=== PATIENT | male | born 1965 | race Caucasian/White ===

== ENCOUNTER 2025-02-25 14:45 | Inpatient (IN) | payer BC, SELFPAY ==
[2025-02-25] VITALS (19 sets, daily range): BP systolic 83–138; BP diastolic 60–102; BMI 34.5; BMI 35.5
--- NOTE | 2025-02-25 11:17 | ED.GENMED ---
History of Present Illness
<Carol Ann Stoner PA-C - Last Filed: 02/25/25 22:13>
General
Chief Complaint: Abdominal Pain
Source: patient
Exam Limitations: none
Time Seen by Provider: 02/25/25 10:52
Nursing documentation reviewed up to this point in time: agreed with
History of Present Illness
History of Present Illness:
Patient is a 59-year-old healthy male who presents to the emergency department for evaluation of abdominal pain and distention. He states his symptoms started Thursday afternoon with somewhat vague abdominal discomfort as he was leaving for a
business trip to [place]. Over the following 2 days he states pain seem to migrate and localized in the right lower quadrant. He states he feels extremely bloated and his abdomen is distended. He has had very little appetite, nausea, and did
have 1 episode of diarrhea this morning. Patient states that he returned home from his business trip last night and his felt that he looked 'pierson'. He also had a temp at home last night of 102F.
Patient denies any chest pain although does endorse mild shortness of breath with exertion send symptoms started. He denies any dysuria although states his urinary frequency has been much less.
He has no prior history of abdominal surgeries.
Review of Systems
<Carol Ann Stoner PA-C - Last Filed: 02/25/25 22:13>
Review of Systems
Allergies reviewed?: Yes
All Other Systems: ROS reviewed and negative except as documented in HPI and ROS
Phy Exam
<Carol Ann Stoner PA-C - Last Filed: 02/25/25 22:13>
Physical Exam
Physical Exam:
Vitals: Tachycardic, mildly tachypneic, and febrile to 102.2F
General: Patient is uncomfortable appearing
Skin: Warm and dry, no rashes or lesions
Head: Normocephalic, atraumatic
Eyes: Sclera nonicteric.
Throat: Protecting airway
Neck: Normal ROM, no cervical spine tenderness, no meningismus
Cardiac: Tachycardic, regular rhythm, no murmurs.
Pulm: Mildly tachypneic. Shallow breaths. No wheezing or rhonchi appreciated bilaterally
Abdomen: Distended. Focal tenderness in right lower quadrant McBurney's point with voluntary guarding. No rebound tenderness
Extremities: No evidence of cyanosis or edema
Neuro: AAOx3. Grossly intact.
Psychiatric: Normal affect.
Sepsis
<Carol Ann Stoner PA-C - Last Filed: 02/25/25 22:13>
Sepsis Screening
Sepsis Assessment: Severe Sepsis
Sepsis Screening: ARF-Creatinine >2.0 and Worsening O2 Saturation
Sepsis Screen
Sepsis Screen: Severe Sepsis
Date: 02/25/25
Time: 22:07
<Anita Goncalves MD - Last Filed: 02/25/25 14:39>
Sepsis Screen
Sepsis Screen: Severe Sepsis
Date: 02/25/25
Time: 14:31
Course
<Carol Ann Stoner PA-C - Last Filed: 02/25/25 22:13>
Orders/Labs/Results
Orders:
Orders
02/25/25 Lunch
NPO
Allow oral meds: Yes
Allow clear liquids: Sips of Clears
NPO with Ice Chips: Yes
02/25/25 11:02
Electrocardiogram (*1) Urgent
Reason for Study: Shortness of Breath
EKG- Treatment ONCE
Urinalysis Reflex To Culture Urgent
0.9% Sodium Chloride 1000 ml [Nss] 1,000 ml IV BOLUS
02/25/25 11:03
CT Abd/pelvis W Iv Cont Urgent
Comment:
Reason For Exam: RLQ pain, bloating
Cardiac Monitoring- Treatment ONCE
HYDROmorphone [Dilaudid] 0.5 mg IV NOW STA
Ondansetron Injectable [Zofran] 4 mg IV NOW STA
02/25/25 11:25
Complete Blood Count/With Diff Urgent
Comprehensive Metabolic Panel Urgent
Direct Bilirubin Urgent
Lactic Acid Q4H
Comment: CANCEL 2nd LACTIC ACID IF 1st LACTIC ACID IS LESS THAN 2
Lipase Urgent
Magnesium Urgent
Comment: ADD ON
Blood Culture Q30M
SHENA Source: Blood/Venous
Specimen Description:
02/25/25 11:26
Blood Culture Q30M
SHENA Source: Blood/Venous
Specimen Description:
02/25/25 11:31
CR Abdomen - 1 View Urgent
Comment:
Reason For Exam: SOB, abdominal pain
Chest Single View Frontal CR [CR Chest Single View] Urgent
Comment:
Reason For Exam: SOB, abdominal pain
02/25/25 11:50
Acetaminophen 1000MG/100Ml [Ofirmev] 1,000 mg in 100 ml IV ONCE
Acetaminophen IV Indication:: ED Narcotic Naive Pt-ONCE
02/25/25 11:51
0.9% Sodium Chloride 1000 ml [Nss] 1,000 ml IV BOLUS
02/25/25 12:00
Piperacillin/Tazo 3.375 Gram [Zosyn] 3.375 gram in 50 ml IV NOW
02/25/25 12:48
0.9% Sodium Chloride 250 ml [Nss] 250 ml IV BOLUS
02/25/25 13:39
Admit/Transfer Patient As Directed
Co-Sign Provider:
Level of Care: Inpatient admission
Assign to:: Medical/Surgical
Physician / Group: General surgery/Leo
Diagnosis: Acute appendicitis
Reason for Hospitalization: ileus, acute appendicitis, ARF
Expected length of stay greater than two midnights?: Yes
ELOS- Estimated Length of Stay in days: 3
I certify the patient meets the requirements for IP care: Yes
PRN Pain Medication Management As Directed
May give lesser potent ordered pain med per pt: Yes
preference::
Protocol:: Medication orders for pain may be administered in a
manner that supports deferring to patient preference
when the pt is:
- Requesting an ordered lesser potent pain medication.
Least to most potent pain medications are defined
as: acetaminophen < NSAID < tramadol < opioids
(morphine, oxycodone, hydromorphone).
- Requesting a lesser dose of the same medication IF
ORDERED.
- Requesting a less intrusive route of administration
if both routes are prescribed by the provider (PO <
IV).
02/25/25 13:40
Code Status As Directed
Resuscitation Status: Full Code
02/25/25 13:51
Consult Hospitalist [HOSPITALIST CONSULT] Routine
Consulting Provider: Romina Toledo
Was physician already notified: Yes
Reason for consult: Medical management
02/25/25 13:58
UA [Urinalysis] Routine
Urine Creatinine Routine
Urine Sodium Routine
02/25/25 14:01
Osmolality, Random Urine Routine
02/25/25 14:02
Dexamethasone Sod Phosphate [Decadron] 20 mg .ROUTE .STK-MED ONE
Lidocaine HCl/Pf [Xylocaine-Mpf 1% Vial] 50 mg .ROUTE .STK-MED ONE
Ondansetron Injectable [Zofran] 4 mg .ROUTE .STK-MED ONE
Phenylephrine HCl/0.9% NaCl [Josh-Synephrine] 1,000 mcg .ROUTE .STK-MED ONE
Propofol [Diprivan] 20 ml .ROUTE .STK-MED
Rocuronium [place] [Rocuronium] 50 mg .ROUTE .STK-MED ONE
Succinylcholine Chloride [Succinylcholine] 200 mg .ROUTE .STK-MED ONE
Sugammadex Sodium [Bridion] 200 mg .ROUTE .STK-MED ONE
02/25/25 14:05
Fentanyl Citrate/Pf [Sublimaze] 100 mcg .ROUTE .STK-MED ONE
Midazolam HCl [Versed] 2 mg .ROUTE .STK-MED ONE
02/25/25 14:07
Amiodarone [Cordarone] 300 mg .ROUTE .STK-MED ONE
02/25/25 14:09
Bupivacaine 0.5%Pf/Epinephrin [Sensorcain-Mpf Epi 0.5%-0.0005] 30 ml .ROUTE .STK-MED ONE
Carboxymethylcellulose [Refresh Celluvisc Gel] 6 drops .ROUTE .STK-MED ONE
02/25/25 14:15
Add On- LAB Urgent
Tests Added?: magnesium
02/25/25 14:19
Transfer Patient As Directed
Transfer to: IMU- Intermediate Care
02/25/25 14:20
Potassium Chloride [KCl] 40 meq 0.9% Sodium Chloride 250 ml [Nss] 250 ml IV NOW
02/25/25 14:24
Amiodarone [Cordarone] 450 mg DEXTROSE 5% PVC-free BAG [D5W PVC-free BAG] 250 ml IV NOW
Initial Dose in mg/min:: 1
Duration of initial dose (hours):: 6
Subsequent dose in mg/min:: 0.5
Duration of subsequent dose (hours):: 18
Maximum dose in mg/min:: 1
Hold and notify provider if:: Heart rate < 60 BPM or SBP < 90 mmHg or MAP < 60 mmHg
02/25/25 14:26
NORepinephrine 4 MG/250 ML [Levophed] 4 mg in 250 ml .ROUTE .STK-MED
02/25/25 14:29
0.9% Sodium Chloride 1000 ml [Nss] 1,000 ml IV BOLUS
02/25/25 14:45
Sterile Water For Inj [Sterile Water For Injection 1000 ml] 1,000 ml Sodium Bicarbonate 150 meq IV 100 mls/hr
Saucedo Catheter [Catheter- Indwelling] As Directed
Reason for insertion: Acute Kidney Injury
Discontinue Date/Time: 02/28/25 0600
Intake/ Output As Directed
Frequency: Per unit guidelines
Comment: strict intake and output monitoring
Weight As Directed
Frequency: Daily
02/25/25 16:42
Acetaminophen [Tylenol] 650 mg PO Q4HPRN PRN
HYDROmorphone [Dilaudid] 0.5 mg IV Q2HPRN PRN
HYDROmorphone [Dilaudid] 1 mg IV Q2HPRN PRN
Ondansetron Injectable [Zofran] 4 mg IV Q6HPRN PRN
Oxycodone [Roxicodone] 5 mg PO Q4HPRN PRN
02/25/25 16:42
Echo 2D MMode Color/Doppler Routine
Reason for Study: SVT, NSVT
Activity As Directed
Activity Level: Out of Bed-Early Mobility
Anti-embolism (SANGEETA) Hose As Directed
Type: Thigh high
Intake/ Output As Directed
Frequency: Per unit guidelines
Pneumatic Compression Sleeves As Directed
Type: Knee high
Pneumatic Compression Sleeves As Directed
Type: Thigh high
Vital Signs As Directed
Frequency: Per unit guidelines
O2 Therapy [RESP] Routine
Titrate/Wean O2 to maintain O2 sat greater than (%): 92
Rx Incentive Spirometry [RESP] Routine
Frequency: q1h while awake
# of times per hour: 10
DX Deep Vein Thrombosis Video Routine
DX Deep Vein Thrombosis Video Routine
DX Deep Vein Thrombosis Video Routine
02/25/25 18:00
Piperacillin/Tazo 2.25 Gram [Zosyn] 2.25 grams in 50 ml IV Q6H
02/26/25 06:00
Complete Blood Count/No Diff IN AM
Comprehensive Metabolic Panel IN AM
02/26/25 20:00
Heparin 5,000 units SC Q12
Abnormal Lab Results
02/25/25
11:25
WBC 16.0 H 10^3/uL
(4.8-10.8)
Abs Immat Gran (auto) 0.2 H 10^3/uL
(0-0.05)
Absolute Neuts (auto) 14.0 H 10^3/uL
(1.4-6.5)
Absolute Lymphs (auto) 0.6 L 10^3/uL
(1.2-3.4)
Absolute Monos (auto) 1.1 H 10^3/uL
(0.1-0.6)
Immature Gran % 0.9 H %
(0-0.5)
Neutrophils % 87.7 H %
(42.2-75.2)
Lymphocytes % 3.9 L %
(20.5-51.1)
Sodium 129 L mmol/L
(135-145)
Chloride 94 L mmol/L
(98-107)
Carbon Dioxide 20 L mmol/L
(22-30)
BUN 55 H mg/dl
(9-20)
Creatinine 3.4 H mg/dL
(0.7-1.3)
Glucose 124 H mg/dl
(70-99)
Total Bilirubin 1.9 H mg/dl
(0.2-1.3)
Direct Bilirubin 0.5 H mg/dl
(0.0-0.4)
02/25/25 11:25
02/25/25 11:25
Vital Signs
Initial and Last Documented VS:
Initial Vital Signs
Temp Pulse Resp BP Pulse Ox
98.8 F 114 16 103/68 98
02/25/25 10:26 02/25/25 10:26 02/25/25 10:26 02/25/25 10:26 02/25/25 10:26
Last Documented Vital Signs
Temp Pulse Resp BP Pulse Ox
97.8 F 83 25 124/81 98
02/25/25 18:37 02/25/25 18:30 02/25/25 18:30 02/25/25 18:02 02/25/25 20:21
<Anita Goncalves MD - Last Filed: 02/25/25 14:39>
Orders/Labs/Results
Orders:
Orders
02/25/25 Lunch
NPO
Allow oral meds: Yes
Allow clear liquids: Sips of Clears
NPO with Ice Chips: Yes
02/25/25 11:02
Electrocardiogram (*1) Urgent
Reason for Study: Shortness of Breath
EKG- Treatment ONCE
Urinalysis Reflex To Culture Urgent
0.9% Sodium Chloride 1000 ml [Nss] 1,000 ml IV BOLUS
02/25/25 11:03
CT Abd/pelvis W Iv Cont Urgent
Comment:
Reason For Exam: RLQ pain, bloating
Cardiac Monitoring- Treatment ONCE
HYDROmorphone [Dilaudid] 0.5 mg IV NOW STA
Ondansetron Injectable [Zofran] 4 mg IV NOW STA
02/25/25 11:25
Complete Blood Count/With Diff Urgent
Comprehensive Metabolic Panel Urgent
Direct Bilirubin Urgent
Lactic Acid Q4H
Comment: CANCEL 2nd LACTIC ACID IF 1st LACTIC ACID IS LESS THAN 2
Lipase Urgent
Magnesium Urgent
Comment: ADD ON
Blood Culture Q30M
SHENA Source: Blood/Venous
Specimen Description:
02/25/25 11:26
Blood Culture Q30M
SHENA Source: Blood/Venous
Specimen Description:
02/25/25 11:31
CR Abdomen - 1 View Urgent
Comment:
Reason For Exam: SOB, abdominal pain
Chest Single View Frontal CR [CR Chest Single View] Urgent
Comment:
Reason For Exam: SOB, abdominal pain
02/25/25 11:50
Acetaminophen 1000MG/100Ml [Ofirmev] 1,000 mg in 100 ml IV ONCE
Acetaminophen IV Indication:: ED Narcotic Naive Pt-ONCE
02/25/25 11:51
0.9% Sodium Chloride 1000 ml [Nss] 1,000 ml IV BOLUS
02/25/25 12:00
Piperacillin/Tazo 3.375 Gram [Zosyn] 3.375 gram in 50 ml IV NOW
02/25/25 12:48
0.9% Sodium Chloride 250 ml [Nss] 250 ml IV BOLUS
02/25/25 13:39
Admit/Transfer Patient As Directed
Co-Sign Provider:
Level of Care: Inpatient admission
Assign to:: Medical/Surgical
Physician / Group: General surgery/Leo
Diagnosis: Acute appendicitis
Reason for Hospitalization: ileus, acute appendicitis, ARF
Expected length of stay greater than two midnights?: Yes
ELOS- Estimated Length of Stay in days: 3
I certify the patient meets the requirements for IP care: Yes
PRN Pain Medication Management As Directed
May give lesser potent ordered pain med per pt: Yes
preference::
Protocol:: Medication orders for pain may be administered in a
manner that supports deferring to patient preference
when the pt is:
- Requesting an ordered lesser potent pain medication.
Least to most potent pain medications are defined
as: acetaminophen < NSAID < tramadol < opioids
(morphine, oxycodone, hydromorphone).
- Requesting a lesser dose of the same medication IF
ORDERED.
- Requesting a less intrusive route of administration
if both routes are prescribed by the provider (PO <
IV).
02/25/25 13:40
Code Status As Directed
Resuscitation Status: Full Code
02/25/25 13:51
Consult Hospitalist [HOSPITALIST CONSULT] Routine
Consulting Provider: Romina Toledo
Was physician already notified: Yes
Reason for consult: Medical management
02/25/25 13:58
UA [Urinalysis] Routine
Urine Creatinine Routine
Urine Sodium Routine
02/25/25 14:01
Osmolality, Random Urine Routine
02/25/25 14:02
Dexamethasone Sod Phosphate [Decadron] 20 mg .ROUTE .STK-MED ONE
Lidocaine HCl/Pf [Xylocaine-Mpf 1% Vial] 50 mg .ROUTE .STK-MED ONE
Ondansetron Injectable [Zofran] 4 mg .ROUTE .STK-MED ONE
Phenylephrine HCl/0.9% NaCl [Josh-Synephrine] 1,000 mcg .ROUTE .STK-MED ONE
Propofol [Diprivan] 20 ml .ROUTE .STK-MED
Rocuronium [place] [Rocuronium] 50 mg .ROUTE .STK-MED ONE
Succinylcholine Chloride [Succinylcholine] 200 mg .ROUTE .STK-MED ONE
Sugammadex Sodium [Bridion] 200 mg .ROUTE .STK-MED ONE
02/25/25 14:05
Fentanyl Citrate/Pf [Sublimaze] 100 mcg .ROUTE .STK-MED ONE
Midazolam HCl [Versed] 2 mg .ROUTE .STK-MED ONE
02/25/25 14:07
Amiodarone [Cordarone] 300 mg .ROUTE .STK-MED ONE
02/25/25 14:09
Bupivacaine 0.5%Pf/Epinephrin [Sensorcain-Mpf Epi 0.5%-0.0005] 30 ml .ROUTE .STK-MED ONE
Carboxymethylcellulose [Refresh Celluvisc Gel] 6 drops .ROUTE .STK-MED ONE
02/25/25 14:15
Add On- LAB Urgent
Tests Added?: magnesium
02/25/25 14:19
Transfer Patient As Directed
Transfer to: IMU- Intermediate Care
02/25/25 14:20
Potassium Chloride [KCl] 40 meq 0.9% Sodium Chloride 250 ml [Nss] 250 ml IV NOW
02/25/25 14:24
Amiodarone [Cordarone] 450 mg DEXTROSE 5% PVC-free BAG [D5W PVC-free BAG] 250 ml IV NOW
Initial Dose in mg/min:: 1
Duration of initial dose (hours):: 6
Subsequent dose in mg/min:: 0.5
Duration of subsequent dose (hours):: 18
Maximum dose in mg/min:: 1
Hold and notify provider if:: Heart rate < 60 BPM or SBP < 90 mmHg or MAP < 60 mmHg
02/25/25 14:26
NORepinephrine 4 MG/250 ML [Levophed] 4 mg in 250 ml .ROUTE .STK-MED
02/25/25 14:29
0.9% Sodium Chloride 1000 ml [Nss] 1,000 ml IV BOLUS
02/25/25 14:45
Sterile Water For Inj [Sterile Water For Injection 1000 ml] 1,000 ml Sodium Bicarbonate 150 meq IV 100 mls/hr
Saucedo Catheter [Catheter- Indwelling] As Directed
Reason for insertion: Acute Kidney Injury
Discontinue Date/Time: 02/28/25 0600
Intake/ Output As Directed
Frequency: Per unit guidelines
Comment: strict intake and output monitoring
Weight As Directed
Frequency: Daily
02/25/25 16:42
Acetaminophen [Tylenol] 650 mg PO Q4HPRN PRN
HYDROmorphone [Dilaudid] 0.5 mg IV Q2HPRN PRN
HYDROmorphone [Dilaudid] 1 mg IV Q2HPRN PRN
Ondansetron Injectable [Zofran] 4 mg IV Q6HPRN PRN
Oxycodone [Roxicodone] 5 mg PO Q4HPRN PRN
02/25/25 16:42
Echo 2D MMode Color/Doppler Routine
Reason for Study: SVT, NSVT
Activity As Directed
Activity Level: Out of Bed-Early Mobility
Anti-embolism (SANGEETA) Hose As Directed
Type: Thigh high
Intake/ Output As Directed
Frequency: Per unit guidelines
Pneumatic Compression Sleeves As Directed
Type: Knee high
Pneumatic Compression Sleeves As Directed
Type: Thigh high
Vital Signs As Directed
Frequency: Per unit guidelines
O2 Therapy [RESP] Routine
Titrate/Wean O2 to maintain O2 sat greater than (%): 92
Rx Incentive Spirometry [RESP] Routine
Frequency: q1h while awake
# of times per hour: 10
DX Deep Vein Thrombosis Video Routine
DX Deep Vein Thrombosis Video Routine
DX Deep Vein Thrombosis Video Routine
02/25/25 18:00
Piperacillin/Tazo 2.25 Gram [Zosyn] 2.25 grams in 50 ml IV Q6H
02/26/25 06:00
Complete Blood Count/No Diff IN AM
Comprehensive Metabolic Panel IN AM
02/26/25 20:00
Heparin 5,000 units SC Q12
Abnormal Lab Results
02/25/25
11:25
WBC 16.0 H 10^3/uL
(4.8-10.8)
Abs Immat Gran (auto) 0.2 H 10^3/uL
(0-0.05)
Absolute Neuts (auto) 14.0 H 10^3/uL
(1.4-6.5)
Absolute Lymphs (auto) 0.6 L 10^3/uL
(1.2-3.4)
Absolute Monos (auto) 1.1 H 10^3/uL
(0.1-0.6)
Immature Gran % 0.9 H %
(0-0.5)
Neutrophils % 87.7 H %
(42.2-75.2)
Lymphocytes % 3.9 L %
(20.5-51.1)
Sodium 129 L mmol/L
(135-145)
Chloride 94 L mmol/L
(98-107)
Carbon Dioxide 20 L mmol/L
(22-30)
BUN 55 H mg/dl
(9-20)
Creatinine 3.4 H mg/dL
(0.7-1.3)
Glucose 124 H mg/dl
(70-99)
Total Bilirubin 1.9 H mg/dl
(0.2-1.3)
Direct Bilirubin 0.5 H mg/dl
(0.0-0.4)
02/25/25 11:25
02/25/25 11:25
Vital Signs
Initial and Last Documented VS:
Initial Vital Signs
Temp Pulse Resp BP Pulse Ox
98.8 F 114 16 103/68 98
02/25/25 10:26 02/25/25 10:26 02/25/25 10:26 02/25/25 10:26 02/25/25 10:26
Last Documented Vital Signs
Temp Pulse Resp BP Pulse Ox
97.8 F 83 25 124/81 98
02/25/25 18:37 02/25/25 18:30 02/25/25 18:30 02/25/25 18:02 02/25/25 20:21
<Carol Ann Stoner PA-C - Last Filed: 02/25/25 22:13>
MDM/Problems Addressed
Differential Diagnosis Includes:
Not limited to: acute appendicitis, acute cholecystitis, bowel obstruction, incarcerated hernia, bowel perforation, intra-abdominal abscess, etc
MDM/Problems Addressed:
54 year-old male with severe sepsis secondary to acute appendicitis. Presenting with three days of progressively worsening abdominal pain, nausea, and fever at home.
Patient arrives tachycardic, mildly tachypneic. Afebrile on arrival. Physical exam as above.
Labs significant for leukocytosis of 16,000 with left shift. Chemistry reveals hyponatremia as well as acute renal failure with elevated creatine to 3.4. Lactic acid is normal.
With concern for sepsis � patient was given 30ml/kg fluid bolus as well as IV Zosyn with suspected G.I. source of infection.
No evidence of free air on X-ray imaging.
CT scan shows severe acute appendicitis with possible small bowel ileum. No evidence of associated perforation or abscess.
Patient meets severe sepsis criteria with persistent tachycardia, now febrile, with acute renal failure, and evidence of appendicitis.
Case was discussed with general surgery, Dr. Bailey who evaluates patient at bedside. He will plan to take patient directly to OR for appendectomy. Patient accepted to general surgery service.
Chronic conditions affecting care:
N/A
Acute Exacerbation and/or Progression of Chronic Illness:
N/A
<Carol Ann Stoner PA-C - Last Filed: 02/25/25 22:13>
*Radiology
Radiology exam reviewed: radiology read reviewed
*Pulse Oximetry
SaO2: 88
Oxygen Mode of Delivery: Room air
Patient hypoxic: yes
*EKG
Interpreted by ED Provider?: Yes
EKG Intrepretation Date: 02/25/25
Interpretation: abnormal
Comparison EKG: no comparison EKG present
Heart Rate: 118
Rate: tachycardiac
Rhythm: sinus
[place]: normal axis
Interval: normal QT interval
QRS Pattern: normal QRS
Ischemia: no ischemia
*Medical Transcription Radiology Interpretation
Rate: tachycardiac
Interpretation: abnormal
Heart Rate: 112
Rhythm: sinus
*Critical Care Note
Total Time (30-74mins, 75-104mins- exclusive of procedures): 45
comment:
A total of 45 minutes of critical care time was provided for this patient. This includes management of unstable vital signs, evaluation of the patient at bedside, reviewing the patient's pertinent medical records, ordering and reviewing studies,
arranging urgent treatment with development of a management plan, evaluating patient's response to treatment, frequent reassessment, and discussion with consultants. This time was separate from time utilized to perform the aforementioned documented
procedures.
<Carol Ann Stoner PA-C - Last Filed: 02/25/25 22:13>
Patient Management
Discussion with other providers: Hospitalist and [employer]person [employer] (Case discussed w/ general surgery)
<Carol Ann Stoner PA-C - Last Filed: 02/25/25 22:13>
Update Note
Update Note:
Update: Prior to transportation to OR � RN in ED did alert myself and attending that patient became tachycardic in 200s. We re-evaluated patient bedside who appears to be in an SVT however asymptomatic. He then briefly converted into a ventricular
tachycardia for about 15 beats prior to returning into an SVT.
He was given dose of amiodarone and placed on an amiodarone drip. SVT did convert back to a sinus tachycardia after vagal maneuvers.
At this point � general surgery, hospital team, as well as cardiology were made aware for further management.
Patient was eventually transported to the OR from ED under general surgery service.
ED Attending Note
<Carol Ann Stoner PA-C - Last Filed: 02/25/25 22:13>
-
Portions of this chart may have been created with voice recognition software.� Occasional wrong word or��sound alike� substitutions may have occurred due to the inherent limitations of voice recognition software.
<Anita Goncalves MD - Last Filed: 02/25/25 14:39>
ED Attending Note
Patient seen and examined by attending physician: Yes
I performed the substantive portion of visit, reviewed & personally made and approve the management plan that is documented in note by myself or GERA.: Yes
ED Attending Note:
I have seen and evaluated the patient with a [id number] encounter. I have spoken to the [GERA] and involved in the medical history, the physical exam, medical decision making.
Evaluation and management service: agree unless noted differently below.
Results interpretation: agree unless noted differently below.
59-year-old man is otherwise healthy presenting to the emergency department abdominal pain. Abdominal pain started few days ago. Started off in the right lower quadrant. Since then has been having worsening abdominal bloating as well as nausea
vomiting and 1 episode of diarrhea last night. No prior abdominal surgeries. No recent illnesses. He was febrile to 102 last night. On my evaluation patient is sitting there resting comfortably. His abdomen is distended and diffusely tender.
There is mild guarding. He is tachycardic regular rate and rhythm. Lungs are clear to auscultation.
Concern for acute abdomen such as obstruction versus perforated viscus vs appendicitis. Will take patient over for stat upright x-rays while we await CT scan. He is febrile. Will check cultures and give empiric antibiotics as well as fluids.
Anticipate admission.
CT scan consistent with appendicitis.
Nursing called to bedside as patient as patient's heart rate in the 200s. I merely went to examine patient. He is asymptomatic with narrow complex tachycardia on the monitor. EKG confirmed SVT. Pads were placed on patient as patient did have 1
hypotensive reading.. While pads were being placed noticed wide-complex beat on the monitor. He then went back into SVT with a normal blood pressure. Revert maneuver was successful. Patient did go into normal sinus rhythm but shortly after went
into nonsustained V. tach. Blood pressures were stable. Patient remained asymptomatic. Patient back to normal rhythm on the monitor. Will repeat EKG. Will initiate amiodarone bolus and drip. Hospitalist surgery and cardiology notified.
Critical care statement: A total of 45 minutes of critical care time was provided for this patient. This includes management of unstable vital signs, evaluation of the patient at bedside, reviewing the patient's pertinent medical records, ordering
and reviewing studies, arranging urgent treatment with development of a management plan, evaluating patient's response to treatment, frequent reassessment, and discussion with consultants. This time was separate from time utilized to perform the
aforementioned documented procedures.
Discharge Plan
Departure
Patient Disposition: OR
Date of Disposition: 02/25/25
Time of Disposition: 13:23
Admit to doctor: Dr. Bailey
Presentation/result/management discussed w/ accepting MD/DO: General Surgery
Discharge Problem:
Severe sepsis, Acute appendicitis, Acute renal failure
Interventions
Interventions:
*Risk Screen - Suicide Last Done: 02/25/25 10:26
*General Assessment Last Done: 02/25/25 10:26
*Neglect/Abuse Screening Last Done: 02/25/25 10:26
*ED COVID-19 Vaccine History Last Done: 02/25/25 12:35
*ED Influenza Vaccine History Last Done: 02/25/25 12:35
[facility] Fall Risk Assessment Tool Last Done: 02/25/25 12:07
*Nursing Disposition Last Done: 02/25/25 14:50
[facility] Assessment Last Done: 02/25/25 11:40
Discharge Date and Time
Discharge Date/Time: 02/25/25 14:50
[2025-02-25] MEDS: DILAUDID 0.5 MG IV (11:28)
[2025-02-25] MEDS: ZOFRAN 4 MG IV (11:28)
[2025-02-25] MEDS: NSS 1000 IV ×3 (11:29→14:30)
[2025-02-25 11:39] LABS: Hematocrit 44.7 % (39.0-52.0); Hemoglobin 15.9 g/dL (13.0-18.0); Mean Corp Hgb Conc. 35.6 g/dL (33.0-37.0); Mean Corpuscular Volume 86.0 fL (80.0-94.0); Nucleated Red Blood Cells % 0 % (-); Platelet Count 174 10^3/uL (130-400); Red Cell Dist. Width 12.5 % (11.5-14.5)
[2025-02-25] MEDS: OFIRMEV 100 IV ×2 (12:00→21:08)
[2025-02-25 12:16] LABS: ALT (SGPT) 24 U/L (0-50); AST (SGOT) 22 U/L (17-59); Albumin 4.0 g/dl (3.5-5.0); Alkaline Phosphatase 82 U/L (38-126); Blood Urea Nitrogen 55 mg/dl (9-20); Calcium 8.8 mg/dl (8.4-10.2); Carbon Dioxide 20 mmol/L (22-30); Chloride 94 mmol/L (98-107); Estimated Creatinine Clearance 28 ml/min; Glucose 124 mg/dl (70-99); Lipase 30 U/L (23-300); Potassium 3.6 mmol/L (3.5-5.1); Sodium 129 mmol/L (135-145); Total Protein 7.0 g/dl (6.3-8.2); eGFR 20.09
[2025-02-25] MEDS: ZOSYN 50 IV ×3 (12:24→23:51)
--- NOTE | 2025-02-25 13:29 | HPS.HSE ---
Addendum entered and electronically signed by Alexandr Bailey MD 02/25/25 13:49:
I saw and examined the patient independently.
The Telesales Advisor's note was reviewed and I agree with the note, assessment and plan except where noted below.
Comment: This is a 59-year-old male who presents with a 3-day history of worsening right lower quadrant pain. Marked leukocytosis, acute kidney injury and tenderness to palpation in the right lower quadrant. CT imaging shows a dilated thickened
appendix with significant surrounding inflammation but no obvious perforation.
N.p.o., IV fluids, IV antibiotics.
Will admit to the general surgery service, hospitalist on consult for GUADALUPE.
Will plan for an urgent a laparoscopic appendectomy.
Risks/Benefits/Alternatives, expected postoperative course and possible complications (bleeding, infection, injury to surrounding structures, acute/chronic pain) discussed at length. Patient wishes to proceed with surgery. All questions answered.
Consent obtained.
I spent 70 minutes in total for the care of this patient today including direct patient care and counseling, reviewing labs, imaging, coordination of care, as well as documentation.
Original Note:
Family Physician
-
Family Physician: Ángel Young
Chief Complaint
-
abdominal pain
History of Present Illness
Mr Ramirez is a 59 yo male who denies significant medical or surgical history who was in his normal state of health on the morning of 02/22 and went to the airport for a short flight to [place] for a business trip. Once he got to the airport, he
began having some mild abdominal pain and considered cancelling his trip but did go ahead and proceed as planned and returned home yesterday. Over the course of the past 3 days he notes that abdominal pain worsened with bloating/distention and
nausea with poor po intake. He had one episode of diarrhea this am with a noted fever and now presents through the ED for evaluation.
Medical History
Past Medical History
Past Medical History: Reports Other (obesity)
Past Surgical History: Reports None
Social History
Tobacco: Non-smoker
Personal:
Living: With Family
Family History
Family History: Not pertinent
Allergies / Home Medications
Allergies reflects when Allergies were last updated in [employer].
Home Medications with original date entered in [employer]
Allergy/Medication List:
Patient Allergies
Allergy/AdvReac Type Severity Reaction Status Date / Time
shellfish derived Allergy Mild Rash Verified 02/25/25 10:26
If medication reconciliation has not been performed, why?: Medication List N/A
Review of Systems
-
History Source: Patient and Family
A 12 point ROS was completed and negative except as noted: Yes
Physical Exam
Vital Signs
Vital Signs
Temp Pulse Resp BP Pulse Ox
102.2 F H 106 26 118/79 96
02/25/25 11:50 02/25/25 12:45 02/25/25 12:45 02/25/25 12:00 02/25/25 12:45
Physical Exam
General: Well Developed and Well Nourished
HEENT: NormoCephalic and Moist mucous membranes
Respiratory: Accessory Resp Muscle Use
GI: Soft, Tender (RLQ) and Distended
Skin: Warm and Dry
Neuro: Awake, Alert and AO x 3
Psych: Calm
Laboratory Results
-
02/25/25 11:25
02/25/25 11:25
Laboratory Results
Lactic Acid Cancelled 02/25/25 15:15
Total Bilirubin 1.9 mg/dl (0.2-1.3) H 02/25/25 11:25
AST 22 U/L (17-59) 02/25/25 11:25
ALT 24 U/L (0-50) 02/25/25 11:25
Alkaline Phosphatase 82 U/L (38-126) 02/25/25 11:25
Lipase 30 U/L (23-300) 02/25/25 11:25
Data Reviewed
-
CT Scan: Image Personally Visualized and interpreted, Report Reviewed by me, Discussed with Physician, Discussed with Patient and Discussed with Family
Lab Data: Labs Reviewed by me, Discussed with Physician, Discussed with Patient and Discussed with Family
Old Records: Reviewed
Impression/Plan
-
IMPRESSION:
59 yo male presenting with 3 days of worsening abdominal pain with nausea/diarrhea and fever today. CT imaging consistent with acute appendicitis with ileus noted. No evidence of perforation or abscess on imaging. Febrile and tachycardic, BP normal.
Leukocytosis present. Lactic acid 1.8. Septic on arrival. Blood cx pending. GUADALUPE present with Cr of 3.4 and hyponatremia present with Na of 129. Co2 decreased. Suspect prerenal d/t hypovolemia/dehydration.
PLAN:
Admit for management
NPO for OR
Emergent laparoscopic appendectomy today
Zosyn and Ofirmev given in ED
Antipyretics/analgesics prn, no NSAIDs given elevated Cr
Will continue IVF, receiving 2L of IVF in ED
Follow labs
SCDs for intraop vte ppx
--- NOTE | 2025-02-25 13:45 | W.SUR.PREOP ---
Pre-Operative Surgical Note
-
I have examined this patient prior to the performance of the scheduled procedure.
The patient's condition is unchanged from the time of the current History and
Physical and the patient is able to undergo the scheduled procedure.
--- NOTE | 2025-02-25 13:54 | HPS.HSE ---
Family Physician
-
Family Physician: Ángel Young
Chief Complaint
-
abdominal pain
History of Present Illness
Mr. Eleuterio Ramirez is a 59 yo man without significant past medical history presents to the ER with abdominal pain that started 3 days ago.
Patient stated he started with right sided lower abdominal pain. He has had poor appetite. When he returned home from a business trip yesterday, noticed he didn't look well and he presented to the ER. He has been urinating less than normal.
+ febrile to 102 at home.
No nausea/vomiting. No chest pain or hx chest pain with exertion. No shortness of breath. No LE swelling.
During ER stay patient went into SVT and then NSVT - asymptomatic without chest pain during episode.
Medical History
Past Medical History
Past Medical History: Reports None
Past Surgical History: Reports None
Social History
Tobacco: Non-smoker
Family History
Family History: Not pertinent
Allergies / Home Medications
Allergies reflects when Allergies were last updated in [email or web address].
Home Medications with original date entered in [email or web address]
Allergy/Medication List:
Allergies
Allergy/AdvReac Type Severity Reaction Status Date / Time
shellfish derived Allergy Mild Rash Verified 02/25/25 10:26
No home medications
Review of Systems
-
History Source: Patient
A 12 point ROS was completed and negative except as noted: Yes
Physical Exam
Vital Signs
Vital Signs
Temp Pulse Resp BP Pulse Ox
102.2 F H 106 26 118/79 96
02/25/25 11:50 02/25/25 12:45 02/25/25 12:45 02/25/25 12:00 02/25/25 12:45
Physical Exam
General: No Apparent Distress
HEENT: PERRLA
Respiratory: Clear; No Wheezes
Cardiac: Tachycardia
Musculoskeletal: No Edema
Skin: Warm and Dry; No Rash
Neuro: AO x 3
Psych: Calm
Laboratory Results
-
02/25/25 11:25
02/25/25 11:
Laboratory Results
Lactic Acid Cancelled 02/25/25 15:15
Total Bilirubin 1.9 mg/dl (0.2-1.3) H 02/25/25:
AST 22 U/L (17-59) 02/25/25 11:
ALT 24 U/L (0-50) 02/25/25:
Alkaline Phosphatase 82 U/L (38-126) 02/25/25:
Lipase 30 U/L (23-300) 02/25/25 11:25
Data Reviewed
-
Diagnostic Radiology: Report Reviewed by me
Lab Data: Labs Reviewed by me
Impression/Plan
-
Mr. Eleuterio Ramirez is a 59 yo man without significant past medical history presents to the ER with abdominal pain that started 3 days ago.
Triage VS: T 98.8, P 114, RR 16, BP 103/68, SpO2 98%
LABS: WBC 16, Hg 15.9, PLT 174, Na 129, K+ 3.6, Cl 94, CO2 20, BUN 55, Cr 3.4, Glucose 124, Lactate 1.8, T. Bili 1.9, direct 0.5, AST 22, ALT 24, Alk Phos 82
CT A/P
IMPRESSION: Findings suggesting severe acute appendicitis. No evidence of perforation or abscess formation. Probable appendicolith.
Associated reactive change of small bowel in the right abdomen and probable small bowel ileus. Evaluation for bowel obstruction is limited without oral contrast.
Hepatic fatty infiltration.
Mild diffuse bladder wall thickening. This can be seen with cystitis and bladder outlet obstruction.
Mild prostate hypertrophy
Delayed excretion of both kidneys
The adrenal glands and kidneys are unremarkable.
Abdomen X-Ray
IMPRESSION:
SEVERE JEJUNAL SMALL BOWEL DISTENTION. Diagnostic possibilities are (1) a distal small bowel obstruction, (2) a severe adynamic ileus, or (3) an acute enteritis.
CXR
IMPRESSION:
1. Severe left upper quadrant small bowel distention. Diagnostic possibilities are (1) a small bowel obstruction, (2) adynamic ileus, or (3) enteritis.
2. No radiographic evidence for pneumoperitoneum.
3. Mild elevation of the right hemidiaphragm.
MAR: 2L IVF, IV Dilaudid, IV Zofran, IV Zosyn
Acute Appendicitis
Sepsis secondary to Above with acute renal failure, elevated total bilirubin
-appreciate surgery
-plan for OR today
-NPO
-IV Zosyn
-pain control
SVT
NSVT
-patient with asymptomatic SVT in ER. Vasovagal maneuver attempted, he then went into several runs of NSVT; IV Amio given. likely response to Sepsis; no reported history of chest pain/ cardiovascular disease
-Cardiology urgently consulted. Will continue IV Amiodarone gtt through surgery
-TTE Thursday
Acute Renal Failure
-creatinine 3.4 in setting of sepsis
-UA, urine studies ordered
-contrast given with CT
-s/p 2.2L IVF in ER, continue sodium bicarb fluids
-raphael overnight given mild bladder distention seen on CT
-Nephrology consult tomorrow if no improvement in creatinine
Hyponatremia
-IVF as above, repeat labs this evening
-follow up urine studies
DVT PPx SCD; hep subQ can start tomorrow
FULL CODE
Total Critical Care Time 60 minutes. I was immediately available to the patient and staff. I personally examined, reviewed labs, diagnostic images/reports, interpretations, treatment plans, discussed patient care with other providers and family
or caregivers (if patient is unable to make decisions), entered orders as appropriate and documented the medical record.
--- NOTE | 2025-02-25 14:02 | EDRN ---
Entered pts room due to alarming on monitor, pt found to be in SVT, alert and awake speaking and c/o no symptoms. Dr. Goncalves called to bedside, crash cart placed in room, pads placed, pt sat up in bed and broke out of SVT, pt then went into a 10 beat
run of VT. Pt alert and oriented talking with staff during whole episode. Amio gtt ordered and requested from pharmacy. Dr. Harris came to pts bedside, army manager Dr. Pool consulted and saw pt prior to pt going to OR. Anesthesia at pts bedside to
assist taking pt upstairs to OR. Pt transported on lifepak w pads placed and amio infusing. Pt transported to OR with no issues.
--- NOTE | 2025-02-25 14:08 | EDRN ---
150mg amiodarone given at 1408
[2025-02-25] MEDS: CORDARONE 259 MG IV ×2 (14:42→22:59)
--- NOTE | 2025-02-25 15:00 | CON.CAR ---
Consultation
Consultation Request
Date/Time Consultation Requested: 02/25/25, 215pm
Date/Time Consultation Performed: 02/25/25, 225pm
Requesting Provider: Tre
Performing Provider: Yrn
Reason for Consultation: SVT, NSVT
Medical History
-
Chief Complaint: abdominal pain
History of Present Illness:
59 yo male with PMH of obesity presents to ED with several days of right sided abdominal pain, fever, poor appetite. No CP/SOB/edema. Prior to this, he reports being able to walk up a flight of stairs without chest pain. We are consulted due to
runs of SVT and NSVT on tele. He did not report any symptoms during these episodes.
Past Medical History
Past Medical History: Other (obesity)
Past Surgical History: None
Social History
Tobacco: Non-Smoker
Living: With Family
Family History
Family History: Early CAD (none)
Allergies / Home Medications
Allergy/AdvReac Type Severity Reaction Status Date / Time
shellfish derived Allergy Mild Rash Verified 02/25/25 10:26
He does not take any prescription medications.
Review of Systems
-
History Source: Patient
All other systems: Negative unless noted
Constitutional: Fever
Abdomen/GI: Abdominal Pain and Anorexia
Physical Exam
Vital Signs
Temp Pulse Resp BP Pulse Ox
99.9 F 105 20 110/85 96
02/25/25 14:16 02/25/25 14:26 02/25/25 14:26 02/25/25 14:26 02/25/25 14:26
Lab Results
02/25/25 11:25
02/25/25 11:25
Physical Exam
General: Other (appears ill, uncomfortable)
HEENT: Normocephalic and Anicteric
Respiratory: Clear and Non Labored Respirations
Cardiac: S1/S2 (normal), Regular Rhythm (tachy), Murmur (none) and Peripheral Edema (none)
GI: Tender
Musculoskeletal: No Clubbing, No Cyanosis and No Edema
Skin: Warm and Dry
Neuro: AO x 3
Psych: Calm
Impression / Plan
-
59 yo male with PMH of obesity is admitted with severe sepsis with acute renal failure in setting of acute appendicitis. We are consulted for arrhythmia.
# SVT, NSVT--paroxysmal
-back in sinus at time of my assessment
-replete lytes: K>4, Mg>2
-will start IV amiodarone to stabilize for surgery, and likely continue for 24 hrs, with monitoring of tele
# Acute appendicitis
-he will need OR emergently
# Severe sepsis with acute renal failure in setting of acute appendicitis
-patient is critical ill in this setting
-Abx and surgery
# obesity
-increases his surgical risk
CCT 65 min.
Data Reviewed
-
EKG: Tracing Personally Visualized and interpreted (EKG's reviewed: sinus tachycardia, and SVT with HR >200), Discussed with Physician, Discussed with Nurse, Discussed with Patient, Discussed with Family and Other (Tele: shows SVT, and also brief
runs of NSVT)
Radiology: Report Reviewed by me (CT with acute appendicitis), Discussed with Physician, Discussed with Nurse and Discussed with Patient
Labs: Labs Reviewed by me, Discussed with Physician, Discussed with Patient and Discussed with Family
[2025-02-25 15:08] LABS: Magnesium 1.9 mg/dl (1.6-2.3)
--- NOTE | 2025-02-25 15:11 | W.CON.NEPH ---
Consultation
-
Date/Time Consultation Requested: 02/25/2025-230 p.m.
Requesting Provider: Dr. Toledo
Performing Provider: Dr. Goetz
Reason for Consultation: acute kidney injury
Medical History
-
Chief Complaint: acute kidney injury
History of Present Illness:
the patient is a 59-year-old male with a past medical history of hypertension not maintained on any antihypertensive therapy. he presented to the hospital today with Right lower abdominal pain that started 3 days prior. he has had poor appetite
but no significant nausea vomiting or diarrhea. He also stated that his urine output had been somewhat lost and he had had a fever of 102� at home. He denied any associated chest pain or shortness of breath. He underwent CT scan with IV contrast
of the abdomen and pelvis which revealed no evidence of obstructive uropathy but for appendicitis and he was sent sent to the OR for appendectomy. while awaiting in the emergency room he developed SVT and non sustained ventricular tachycardia and
was placed on amiodarone before going to surgery. when he presented to the hospital, he was noted to be in acute renal failure with a BUN of 55 and a creatinine of 3.4 with corresponding hyponatremia with a serum sodium level of 129. a review of
past medical records in the electronic medical record from December 17, 2023 revealed a previous baseline creatinine of 1.08. nephrology was then asked to see the patient for acute kidney injury.
Past Medical History
hypertension not on medications
Social History
Tobacco: Non-Smoker
Family History
no CKD
Allergies / Home Medications
Allergy/AdvReac Type Severity Reaction Status Date / Time
shellfish derived Allergy Mild Rash Verified 02/25/25 10:26
Review of Systems
-
All other systems: Negative unless noted
Constitutional: Fever
Abdomen/GI: Abdominal Pain ( right lower quadrant x3 days) and Anorexia
: Other ( some decreased urination over the past 24 hours)
Physical Exam
Vital Signs
Vital Signs
Temp Pulse Resp BP Pulse Ox
99.9 F 107 20 138/102 97
02/25/25 14:16 02/25/25 14:45 02/25/25 14:45 02/25/25 14:45 02/25/25 14:45
Lab Results
WBC 16.0 10^3/uL (4.8-10.8) H 02/25/25 11:25
RBC 5.20 10^6/uL (4.70-6.10) 02/25/25 11:25
Hgb 15.9 g/dL (13.0-18.0) 02/25/25 11:25
Hct 44.7 % (39.0-52.0) 02/25/25 11:25
Plt Count 174 10^3/uL (130-400) 02/25/25 11:25
Sodium 129 mmol/L (135-145) L 02/25/25 11:25
Potassium 3.6 mmol/L (3.5-5.1) 02/25/25 11:25
Chloride 94 mmol/L (98-107) L 02/25/25 11:25
Carbon Dioxide 20 mmol/L (22-30) L 02/25/25 11:25
BUN 55 mg/dl (9-20) H 02/25/25 11:25
Creatinine 3.4 mg/dL (0.7-1.3) H 02/25/25 11:25
eGFR 20.09 02/25/25 11:25
Glucose 124 mg/dl (70-99) H 02/25/25 11:25
Calcium 8.8 mg/dl (8.4-10.2) 02/25/25 11:25
Albumin 4.0 g/dl (3.5-5.0) 02/25/25 11:25
Physical Exam
General: intubated sedated
HEENT: sedatedtd
Respiratory: Clear to auscultation bilaterally with normal lung exersion
Cardiac: S1/S2 and Regular Rate/Rhythm
Breast: Deferred by me
Abdomen: Soft, Nontender, Nondistended, decreased bowel sounds, and No Hepatosplenomegaly
Rectal: Deferred by Provider
Genito-urinary: No Costovertebral Tenderness,raphael
Extremities: No Clubbing, No Cyanosis and No Edema
Skin: No Rash or open lesions
Neuro: Nonfocal/Grossly Intact, CN II-XII (Intact) and Strength (Musculoskeletal exam 5 out of 5 both upper and lower extremities)
Hematologic/Lymphatic: No Cervical Lymphadenopathy, No Submandibular Lymphadenopathy and No Supraclavicular Lymphadenopathy
Psych: sedated on vent
Vascular: plus 2 pedal and radial pulses
Data Reviewed
-
Radiology: Image Personally Visualized and interpreted ( chest x-ray personally reviewed no evidence of pneumonia or congestive heart failure)
CT Scan: Report Reviewed by me ( CT scan of abdomen and pelvis with IV contrast reviewed no evidence of hydronephrosis but notable for appendicitis)
Labs: Labs Reviewed by me ( BMP CBC urinalysis to be ordered and reviewed)
Old Records: Reviewed ( old records reviewed and outpatient EMR from date 12/17/2023 revealed creatinine of 1.08)
Assessment/Plan
-
Impression:
acute appendicitis/sepsis
acute kidney injury
hyponatremia
SVT with several runs of NSVT
Plan;
we suspect the acute kidney injury is possibly due to prerenal etiology in the setting of his appendicitis although he does not report any overt nausea vomiting or diarrhea
unfortunately he was given IV contrast for his CT as this was deemed a possible acute abdomen and he will be at increased risk for acute kidney injury ( there was noted delayed excretion in the kidneys bilaterally of contrast)
he does have an underlying metabolic acidosis and henceforth isotonic IV fluids were provided following his surgical procedure at around 100 cc/hour
Fortunately creatinine is down to 1.6 and he is grossly nonoliguric
Urinalysis is pending
we should obtain a fractional excretion of sodium which would include a urine sodium urine creatinine as well as urinalysis
there was no evidence of obstructive uropathy on CT
of note his baseline creatinine was noted to be 1.08 in December of 2023.
his hyponatremia may be a function of escalated ADH in the setting of pain and/or secondary to renal failure
maintain accurate I's and nose and daily weights postoperatively
Zosyn can be reordered for more normalizing GFR
Patient remains intubated postoperatively
Pressors are off
[2025-02-25 16:16] LABS: B.E. - POC -5.8 mmol/L; Glucose - POC 125 mg/dl (70-99); HCO3 - POC 21 mmol/L (21-28); Hematocrit - POC 39 % PCV (42-52); Hemodilution- POC No; Hemoglobin Calculated - POC 13.2; Ionized Calcium - POC 1.02 mmol/L (1.15-1.33); Lactate - POC 0.69 mmol/L (0.36-0.75); O2 Saturation %Calculated-POC 99.9 % (94-98); PCO2 - POC 44 mmHg (35-48); PO2 - POC 346 mmHg (83-108); Potassium - POC 3.6 mmol/L (3.5-5.1); Sodium - POC 134 mmol/L (136-145); Specimen Type - POC Arterial; pH - POC 7.28 (7.35-7.45)
--- NOTE | 2025-02-25 17:55 | W.IMMPOSTOP ---
Surgical Immed Post Op Note
-
Primary Surgeon: Alexandr Bailey MD
Assisting Surgeon: None
Beader Tender: PAULA Prieto
Pre-op Diagnosis: Acute appendicitis
Post-op Diagnosis: Gangrenous perforated appendicitis, intra-abdominal abscess
Procedure Performed:
1. Laparoscopic appendectomy
2. Drainage of an intra-abdominal abscess
Anesthesia Type: General
Specimen / Cultures:
1. Abdominal abscess for culture aerobic and anaerobic
2. Appendix
Estimated Blood Loss: 23 cc
Complications: None
Operative Findings: Gangrenous appendicitis with zeferino necrosis of the distal third of the appendix. Both pus and feculent output, large appendicolith removed along with smaller fecal matter. Base of the appendix identified and ligated with a 45
hay load. Mesentery divided with the LigaSure. Floseal applied at the base. The appendix was taken out in pieces and all visible fecaliths removed. The area of the right lower quadrant was irrigated and drained. A 19 [place] round Radames drain
was introduced through the left lower quadrant port and passed across the pelvis and up the right colic gutter. This was secured to the skin with a 2-0 nylon suture. Saucedo catheter and NG tube placed at beginning of case. Patient extubated but
reintubated at the end of the case and transferred to the ICU on pressors.
POST OP PLAN:
Imaging: None
Labs: Routine AM
Diet: NPO, expected ileus
Analgesia: Ofirmev, Toradol, Dilaudid PRN
Neuro/vascular checks: Per unit protocol
AC/AP: Hold Therapeutic AC, Ok for DVT PPx
Activity: Ad Lali
Wound/Incisions/Drains: Routine, GRISELDA to bulb suction.
Abx: Continue Zosyn x 7 days
Dispo: ICU. Intraoperative findings and expected postoperative course and care discussed with and brother in waiting area.
[2025-02-25] MEDS: KCL 270 MEQ IV (18:25)
[2025-02-25] MEDS: DIPRIVAN 100 IV (18:37)
[2025-02-25] MEDS: LEVOPHED 250 IV (18:46)
[2025-02-25 18:52] LABS: B.E. -8.3 mmol/L; HCO3 16.0 mmol/L (21-28); O2 Saturation % 98.9 % (94-98); PCO2 29 mmHg (35-48); PO2 101 mmHg (83-108)
[2025-02-25] MEDS: SUBLIMAZE 100 IV (18:52)
--- NOTE | 2025-02-25 19:43 | PTCARENOTE ---
Patient arrived to room 3369 from PACU with PACU RNs & Anesthesiologist around 1800. Dr. Raymond made aware of patient arrival. Pt sedated, upon turning and stimulation, pt able to nod x1 when asked if in pain. NSR on tele. Beronica- zeroed and
transduced. Placed to vent AC 16/500/5/100%. ETT # 8.5 24cm @ lip. Levo/Amio/Bicarb infusing. Prop/fent gtt started per MAY. NGT to LIWS; scant dark green bile. 16 Fr. raphael draining clear, yellow. Lap sites x3 intact. otherwise skin intact. GRISELDA
draining serosanguineous fluid. ABG sent. CXR done. at bedside, updated.
[2025-02-25 20:30] LABS: Blood Urea Nitrogen 47 mg/dl (9-20); Calcium 7.7 mg/dl (8.4-10.2); Carbon Dioxide 18 mmol/L (22-30); Chloride 99 mmol/L (98-107); Estimated Creatinine Clearance 47 ml/min; Glucose 156 mg/dl (70-99); Potassium 4.5 mmol/L (3.5-5.1); Sodium 126 mmol/L (135-145); eGFR 35.81
--- NOTE | 2025-02-25 22:03 | W.PN.SEPSIS ---
Sepsis
Vital Signs
Temp Pulse Resp BP Pulse Ox
97.8 F 83 25 124/81 98
02/25/25 18:37 02/25/25 18:30 02/25/25 18:30 02/25/25 18:02 02/25/25 20:21
Physical Exam
Physical Exam:
A focused exam was performed after fluid resuscitation.
Capillary Refill
Bilateral Upper Extremity:
William Time: Less than 3 sec
Bilateral Lower Extremity:
William Time: Less than 3 sec
Pulse Evaluation
Bilateral Radial:
Pulse Evaluation: Present
Bilateral Dorsalis Pedis:
Pulse Evaluation: Present
[2025-02-25] MEDS: CALCIUM GLUCONATE 100 IV (22:36)
--- NOTE | 2025-02-25 23:09 | PTCARENOTE ---
Report received from off going RN. Dual RN gtt reconciliation completed. Patient received intubated and on Propofol, Fentanyl gtt, Levophed, Amiodarone gtt, and sodium bicarb gtt. KCL at 67.5 ml/hr. Propofol placed on hold for assessment. Patient
follows commands and is attempting to speak. Plan of care for the shift reviewed with the patient & his spouse. Questions answered. Pt's sinus rhythm on the monitor with HR in the 70s. Afebrile, but diaphoretic. Patient being 'sweaty' is normal per
the spouse. + pulses throughout. Right radial arterial line zeroed and calibrated. Cuff BP and A line are 10 mmHg difference. SpO2 at 98% on mechanical ventilation. # 8.5 ETT and 25 at the right lip. AC 16/500/+5/80%. Suctioned large amount of oral
sputum. Abdomen is round and obese. [place] sump to LIWS and draining greenish output. Left GRISELDA is draining serosanguineous output. Site is cdi. Saucedo catheter is intact with bill uop. SCDs in use. Calcium gluconate 2 grams for calcium of 7.7. FINISHED CARPET INSPECTOR at
the bedside per pt's request for further updates.
--- NOTE | 2025-02-25 23:25 | W.PN.UPDATE ---
Update Note
Progress Note Update
02/25/25
6631- Patient's requested updated and plan of care discussion. All questions answered and thorough update given.
[2025-02-26] VITALS (10 sets, daily range): BP systolic 98–134; BP diastolic 63–86; BMI 35.3
[2025-02-26 01:08] LABS: Blood Urea Nitrogen 45 mg/dl (9-20); Calcium 8.4 mg/dl (8.4-10.2); Carbon Dioxide 20 mmol/L (22-30); Chloride 101 mmol/L (98-107); Estimated Creatinine Clearance 54 ml/min; Glucose 158 mg/dl (70-99); Potassium 4.4 mmol/L (3.5-5.1); Sodium 129 mmol/L (135-145); Triglycerides 155 mg/dl (10-149); eGFR 43.09
[2025-02-26] MEDS: DIPRIVAN 100 IV (02:14)
--- NOTE | 2025-02-26 02:55 | PTCARENOTE ---
Pt's with copious amount of dark green sputum. No signs of distress. VSS. Patient suctioned. NGT placement assessed and flushed per protocol. wall suction is on low intermittent. Pt continued with bile like sputum. wall system changed without
improvement. TIMBER HARVESTER OPERATOR made aware and at the bedside. Pt's abdomen remains distended.
[2025-02-26] MEDS: SODIUM BICARBONATE 1150 MEQ IV ×2 (03:02→14:04)
[2025-02-26 04:23] LABS: Hematocrit 37.4 % (39.0-52.0); Hemoglobin 13.4 g/dL (13.0-18.0); Mean Corp Hgb Conc. 35.8 g/dL (33.0-37.0); Mean Corpuscular Volume 87.6 fL (80.0-94.0); Platelet Count 179 10^3/uL (130-400); Red Cell Dist. Width 12.8 % (11.5-14.5)
[2025-02-26] MEDS: OFIRMEV 100 IV ×4 (04:23→21:24)
[2025-02-26 05:04] LABS: ALT (SGPT) 20 U/L (0-50); AST (SGOT) 16 U/L (17-59); Albumin 2.8 g/dl (3.5-5.0); Alkaline Phosphatase 61 U/L (38-126); Blood Urea Nitrogen 43 mg/dl (9-20); Calcium 8.2 mg/dl (8.4-10.2); Carbon Dioxide 23 mmol/L (22-30); Chloride 101 mmol/L (98-107); Estimated Creatinine Clearance 61 ml/min; Glucose 155 mg/dl (70-99); Magnesium 2.3 mg/dl (1.6-2.3); Potassium 4.4 mmol/L (3.5-5.1); Sodium 130 mmol/L (135-145); Total Protein 5.4 g/dl (6.3-8.2); eGFR 49.63
[2025-02-26] MEDS: SUBLIMAZE 100 IV (05:45)
[2025-02-26] MEDS: ZOSYN 50 IV ×3 (06:08→18:38)
[2025-02-26 06:11] LABS: B.E. -0.5 mmol/L; HCO3 24.2 mmol/L (21-28); O2 Saturation % 99.4 % (94-98); PCO2 39 mmHg (35-48); PO2 160 mmHg (83-108)
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
[2025-02-26 08:21] LABS: Urine Character Slightly Cloudy (Clear)
--- NOTE | 2025-02-26 08:30 | CON.INTV ---
Consultation
Consultation Request
Date/Time Consultation Requested: 02/25/20251608
Date/Time Consultation Performed: 02/26/2025829
Requesting Provider: Dr. Toledo
Performing Provider: Dr. Raymond
Reason for Consultation: Intubation/sepsis with acute appendicitis
Medical History
-
Chief Complaint: Abdominal pain + bloating
History of Present Illness:
59-year-old male non-smoker with a past medical history of hypertension + hyperlipidemia who presents with abdominal pain + bloating. Also having diarrhea since morning prior to arrival and had a temperature of 102 �F one day prior to arrival. He
recently had a business trip to [place] and once he got to the airport he began having mild abdominal pain but went on his trip anyway. He returned home 1 day prior to arrival. He has been having abdominal pain over the last 3 days with
worsening bloating/distention and nausea with poor oral intake. CT abdomen/pelvis showed findings suggestive of severe acute appendicitis. Surgery consulted and plan was to take him to OR. Prior to procedure, he developed SVT/NSVT on telemetry.
He does not have a history of this and remained asymptomatic during these episodes. Cardiology consulted and by the time they evaluate the patient he was back in sinus rhythm. IV amiodarone was started to stabilize the patient for surgery. Pt
brought to OR and underwent laparoscopic appendectomy with drainage of an intra-abdominal abscess. The patient was initially extubated however had to be quickly reintubated due to respiratory insufficiency. The patient was then transported to the
ICU directly in critical condition. Hand Roller service consulted for additional recommendations/management.
When I saw the patient this morning, he was currently on a wean on the ventilator. He is awake, alert, with at bedside. Current BP via A-line: 121/72, heart rate 73 and saturating 96%. He is following all commands and in NAD. Currently on
amiodarone drip.
PMHx: Hypertension, hyperlipidemia
PSHx: Non-contributory
Past Medical History
Past Medical History: Other (Above as per HPI)
Past Surgical History: None
Social History
Tobacco: Non-smoker
Alcohol: Occasional (1-2 alcoholic drinks on weekends)
Drug: None
Personal:
Living: With Family
Employment: Employed ([employer])
Family History
Family History: CAD (Father), Cancer (Father: Leukemia; mother: Lymphoma), Hypertension (Father) and Other (Mother: from complications from COVID-19 hospitalization)
Allergies / Home Medications
Allergies
Allergy/AdvReac Type Severity Reaction Status Date / Time
shellfish derived Allergy Mild Rash Verified 02/25/25 10:26
Review of Systems
-
Unable to Obtain full review of systems at this time due to: Patient Intubation
Vitals / Labs / Diagnostic Testing
Vital Signs
Temp Pulse Resp BP Pulse Ox
98.4 F 79 13 105/72 96
02/26/25 12:00 02/26/25 09:45 02/26/25 09:45 02/25/25 22:13 02/26/25 11:12
Lab Data
02/26/25 04:14
02/26/25 04:14
Laboratory Results
02/25/25 02/26/25 02/26/25
18:45 06:05 10:34
pH 7.35 7.40 7.47 H
pCO2 29 L 39 40
pO2 101 160 H 107
HCO3 16.0 L 24.2 29.1 H
O2 Delivery Level 5/5 40%
Microbiology
02/25/25 11:25 Blood/Venous Blood Culture - Preliminary
No Growth in 24 hours- Final report to follow
02/25/25 11:26 Blood/Venous Blood Culture - Preliminary
No Growth in 24 hours- Final report to follow
Diagnostic Testing:
Physical Exam
-
HEENT: Normocephalic, Anicteric and Other (ETT in place)
Cardiovascular: S1/S2 and Peripheral Edema (negative)
Respiratory: Wheeze (negative), Rales (negative), Rhonchi (negative), Non-Labored Respirations and Other (Mechanical breath sounds heard bilaterally)
GI: Soft, Distended (Abdominal obesity), Non Tender and Normal Bowel Sounds
Neurology: Awake, Alert and Tremors (negative)
Skin: Warm and Dry
General: Respiratory Distress (negative), Comfortable, Fever (negative) and Chills (negative)
Assessment
-
Assessment: 59-year-old male non-smoker with a past medical history of hypertension + hyperlipidemia who presents with abdominal pain + bloating. Also having diarrhea since morning prior to arrival and had a temperature of 102 �F one day prior to
arrival. He recently had a business trip to [place] and once he got to the airport he began having mild abdominal pain but went on his trip anyway. He returned home 1 day prior to arrival. He has been having abdominal pain over the last 3 days
with worsening bloating/distention and nausea with poor oral intake. CT abdomen/pelvis showed findings suggestive of severe acute appendicitis. Surgery consulted and plan was to take him to OR. Prior to procedure, he developed SVT/NSVT on
telemetry. He does not have a history of this and remained asymptomatic during these episodes. Cardiology consulted and by the time they evaluate the patient he was back in sinus rhythm. IV amiodarone was started to stabilize the patient for
surgery. Pt brought to OR and underwent laparoscopic appendectomy with drainage of an intra-abdominal abscess. The patient was initially extubated however had to be quickly reintubated due to respiratory insufficiency. The patient was then
transported to the ICU directly in critical condition. Hand Roller service consulted for additional recommendations/management.
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
Impression:
#Acute respiratory failure with hypoxia s/p OR
#Acute gangrenous perforated appendicitis with intra-abdominal abscess s/p laparoscopic appendectomy and drainage of abscess (POD #1)
#Severe sepsis due to above
#GUADALUPE
#Hyponatremia due to reduced oral intake
#Hyperbilirubinemia
#Paroxysmal SVT # NSVT with new onset A-fib currently on amiodarone infusion
Plan:
- Patient was extubated after the procedure on 02/25, but then had to be reintubated at the end of the case and then was transferred to the ICU on pressors
- He is now doing much better, remaining hemodynamically stable and off all vasopressors
- No longer having runs of SVT or NSVT; cardiology following
- Continue with IV amiodarone which was started by cardiology; continue with telemetry
- Replete electrolytes with K>4, Mg>2
- Echo pending
- Continue with mechanical ventilation with SAT/SBT - plan to extubate today
- In interim period, maintain plateau pressure <30 and titrate FiO2 + PEEP to keep SpO2 >90-94%
- Continue aspiration precautions; keep HOB >30-45�
- prn nebulized bronchodilators - not currently bronchospastic
- Oropharyngeal + deep ETT suctioning with subglottic as needed
- Daily CXR + blood gas
- Daily vent adjustments as needed based on blood gas and SaO2
- Low level of sedation with goal RASS as 0 to -2
- Continue with antibiotics (Zosyn) and follow-up cultures (blood cultures, culture from intra-abdominal abscess, and urine culture)
- Post-operative management as per surgery
- Pain control
- Follow-up pathology from the OR
- NGT to suction
- Keep NPO until deemed otherwise per surgery
- Trend LFTs
- Trend sNa
- Trend sCr, renally dose all meds/ABx
- Maintain MAP>65
- Maintain euglycemia with goal BG 140-180; check A1C
- Trend H/H and transfuse if needed to keep Hb>7-8g/dL; keep plt>50k (given post-op status)
- Once extubated, encourage incentive spirometer 10x per hour for at least 4 hrs a day
- DVT ppx: HSQ
Continue ICU level of care for this critically ill patient.
Critical care statement: A total of 37 minutes of critical care time was provided for this patient today. This includes management of unstable vital signs, evaluation of the patient at bedside, reviewing the patient's pertinent medical records
including radiographs, microbiology, laboratory evaluations, and discussion with primary team, consultants, pharmacy, nutrition, physical therapy, case management, charge nurse, critical care nursing, and respiratory therapy.
Data:
CT abdomen/pelvis with IV contrast 02/25/2025:
Findings suggesting severe acute appendicitis. No evidence of perforation or abscess formation. Probable appendicolith.
Associated reactive change of small bowel in the right abdomen and probable small bowel ileus. Evaluation for bowel obstruction is limited without oral contrast.
Hepatic fatty infiltration.
Mild diffuse bladder wall thickening. This can be seen with cystitis and bladder outlet obstruction.
Mild prostate hypertrophy
Delayed excretion of both kidneys
[2025-02-26 08:41] LABS: Urine Squamous Cell 0-2 /LPF (Few)
--- NOTE | 2025-02-26 09:17 | W.PN.CD ---
Today's Communication / Plan
-
24 hrs IV amiodarone
Impression / Plan
-
59 yo male with PMH of obesity is admitted with severe sepsis with acute renal failure in setting of acute appendicitis. We are consulted for arrhythmia.
# SVT, NSVT--paroxysmal--likely triggered in setting of severe sepsis
-none since OR
-repleted lytes: K>4, Mg>2
-IV amiodarone for 24hrs
-echo before discharge
# Acute appendicitis
-s/p emergent OR 02/25
-per surgery
# Severe sepsis with acute renal failure in setting of acute appendicitis
-patient is critical ill in this setting, threat to life
-s/p OR 02/25
-weaning vent and pressors
-Abx
# obesity
-increases his risk
CCT 35 min
Physical Exam
Vital Signs/Labs
Vital Signs
Temp Pulse Resp BP Pulse Ox
97.6 F 75 18 105/72 98
02/26/25 07:48 02/25/25 22:13 02/25/25 22:13 02/25/25 22:13 02/26/25 07:55
02/25/25 02/26/25 02/27/25
06:59 06:59 06:59
Actual Weight 108.5 kg
02/26/25 04:14
02/26/25 04:14
Magnesium 2.3 mg/dl (1.6-2.3) 02/26/25 04:14
Triglycerides Cancelled 02/26/25 00:38
Physical Exam
Constitutional: Other (intubated, but awake)
EENT: Moist mucous membranes
Cardiovascular: Rhythm & rate is regular, Pedal edema is absent, JVD pressure is normal and Systolic murmur absent
Respiratory: Other (on vent)
Neuro/Psych: Alert
Data Reviewed
-
Date of Service: February 26, 2025
EKG: Other (Tele: SR 70s, no arrhythmia)
Labs: Labs Reviewed by me
Critical Care Time (in minutes): 35
--- NOTE | 2025-02-26 10:20 | W.PN.GS2 ---
Today's Communication / Plan
-
Wean to extubate
Please ensure NG tube is 60 cm at the naris after extubation and resecure. Maintain to low intermittent wall suction.
Expect fairly prolonged ileus. N.p.o., IV fluids
Continue Zosyn day 1
Zofran, PPI
Trend BMP, CBC. GUADALUPE resolving
Pain control per ICU
Okay for DVT prophylaxis, SCDs.
Incentive spirometry
Appreciate cardiac recommendations. Amiodarone drip.
General surgery will continue to follow. Patient and updated at bedside.
Assessment / Plan
-
This is a 59-year-old male who presented with 3 days of right lower quadrant pain, septic shock and arrhythmia found to have acute appendicitis on CT, now POD#1 from a laparoscopic appendectomy and drainage of an intra-abdominal abscess for a
gangrenous perforated appendicitis with pus and fecaliths in the right lower quadrant.
Wean to extubate
Please ensure NG tube is 60 cm at the naris after extubation and resecure. Maintain to low intermittent wall suction.
Expect fairly prolonged ileus. N.p.o., IV fluids
Continue Zosyn day 1
Zofran, PPI
Trend BMP, CBC. GUADALUPE resolving
Pain control per ICU
Okay for DVT prophylaxis, SCDs.
Incentive spirometry
Appreciate cardiac recommendations. Amiodarone drip.
General surgery will continue to follow. Patient and updated at bedside.
Time Spent
Total Time Spent with Patient (in minutes): 25
Subjective Data
-
Date of Service: February 26, 2025
Interval Events:
No acute events overnight. Pressors weaned off. Sedation off this morning, patient is following commands. Good tidal volume. SBT planned this morning.
Objective Data
-
Intake and Output
02/25/25 02/26/25 02/27/25
06:59 06:59 06:59
Intake Total 2322.7 / 2464.2 409.5 / 409.5
Output Total 1358 / 1358 100 / 100
Balance 964.7 / 1106.2 309.5 / 309.5
Intake:
IV fluids (Total) 2122.7 / 2264.2 409.5 / 409.5
Amiodarone 250.1 / 266.8 50.1 / 50.1
Fentanyl 90.0 / 97.5 22.5 / 22.5
Levophed 127.5 / 135.0 7.5 / 7.5
Potassium chloride 337.5 / 337.5
Propofol 117.6 / 127.4 29.4 / 29.4
Sterile Water For Injection 1200 / 1300 300 / 300
1000 ml 1,000 ml @ 100 mls/hr
IV .[id number] GERSON with Sodium
Bicarbonate 150 Meq Rx#:
[id number]
IV piggybacks 200 / 200
Output:
Drain Output (Total) 187 / 187
Left Lower Abdomen Bryan- 187 / 187
Garza
Urine, Raphael 1171 / 1171 100 / 100
Vital Signs
Temp Pulse Resp BP Pulse Ox
97.6 F 79 13 105/72 97
02/26/25 07:48 02/26/25 09:45 02/26/25 09:45 02/25/25 22:13 02/26/25 09:45
Lab Results
02/26/25 04:14
02/26/25 04:14
Calcium 8.2 mg/dl (8.4-10.2) L 02/26/25 04:14
Phosphorus 3.6 mg/dl (2.5-4.5) 02/26/25 04:14
Magnesium 2.3 mg/dl (1.6-2.3) 02/26/25 04:14
Total Bilirubin 1.4 mg/dl (0.2-1.3) H 02/26/25 04:14
Direct Bilirubin 0.5 mg/dl (0.0-0.4) H 02/25/25 11:25
AST 16 U/L (17-59) L 02/26/25 04:14
ALT 20 U/L (0-50) 02/26/25 04:14
Alkaline Phosphatase 61 U/L (38-126) 02/26/25 04:14
Total Protein 5.4 g/dl (6.3-8.2) L D 02/26/25 04:14
Albumin 2.8 g/dl (3.5-5.0) L 02/26/25 04:14
Physical Exam
-
GENERAL/NEURO: Awake, Alert, no distress
CHEST: Unlabored breathing on vent
ABDOMEN: Soft, obese, appropriately tender, nondistended, GRISELDA serous
Patient has a raphael catheter: Yes
Patient has a central line: No
--- NOTE | 2025-02-26 10:33 | OR.RPT ---
Operative Report
Operative Report
Patient Name: Eleuterio Ramirez
: 1965
Date of Operation: 02/25/2025
Preoperative Diagnosis: Acute Appendicitis
Postoperative Diagnosis: Gangrenous perforated appendicitis, intra-abdominal abscess
Procedure(s):
1. Laparoscopic Appendectomy + 22 modifier
2. Drainage of an intra-abdominal abscess
Surgeon(s):
Dr. Bailey
Veneer Supervisor(s):
Kellie Angulo NP
Anesthesia: General
Estimated Blood Loss: 23 cc
Urine Output: None
Drains/Lines/Implants: 19 Telugu round Radames
Specimens:
1. Appendix
2. Abdominal abscess for culture aerobic and anaerobic.
HPI/Surgical Indications:
This is a 59-year-old male who presents with a 3 day history of abdominal pain. Exam, labs and imaging are consistent with acute appendicitis. Risks/Benefits/Alternatives were discussed at length, and the patient agreed to proceed with surgery. The
patient did go on to develop a brief run of V. tach followed by SVT which eventually converted to sinus tachycardia and was started on amiodarone. He was cleared by cardiology before the OR.
Operative Findings: Gangrenous appendicitis with zeferino necrosis of the distal third of the appendix. Both pus and feculent output, large appendicolith removed along with smaller fecal matter. Base of the appendix identified and ligated with a 45
hay load. Mesentery divided with the LigaSure. Floseal applied at the base. The appendix was taken out in pieces and all visible fecaliths removed. The area of the right lower quadrant was irrigated and drained. A 19 Telugu round Radames drain
was introduced through the left lower quadrant port and passed across the pelvis and up the right colic gutter. This was secured to the skin with a 2-0 nylon suture. Saucedo catheter and NG tube placed at beginning of case. Patient extubated but
reintubated at the end of the case and transferred to the ICU on pressors.
Procedure Description:
The patient was placed in the supine position, with the left arm tucked, and general anesthesia was induced. An 18 Telugu NG as well as a 16 Telugu Saucedo catheter were placed. The defibrillation pads that had been placed in the ED were left in
place. The abdomen was prepared and draped in a sterile fashion so as to expose the entire abdomen. A surgical time out was taken. Abdominal access was obtained with a left subcostal Veress which required a single pass followed by a 5 mm left lower
quadrant Optiview entry. I After confirming no injury on entrance, a 12 mm supraumbilical port as well as a 5 mm suprapubic port were placed. Due to the patient's anatomy, and ongoing ileus there was limited working space. The patient was placed
in Trendelenberg with the right side up. There was significant inflammation and suppurative findings in the right lower quadrant. The omentum was carefully peeled back which exposed a necrotic appendiceal tip. The cecum was tethered up to the
right lower quadrant abdominal wall and was difficult to peel down so was left in place. We carefully identified the ligament of Treves which was peeled off to expose more of the appendix. As we did this, we encountered an abscess with pus and
stool emanating from a hole in the appendix. Though we tried to keep the appendix intact, it was difficult to visualize into the abscess cavity so the distal third of the appendix was removed and placed in a specimen bag along with a few fecaliths.
This allowed us to visualize the middle third of the appendix which had patchy areas of necrosis. The mesentery was visualized and cauterized using a bipolar energy device. Still it was difficult to identify the true base of the appendix so again
this portion of the appendix was cut/divided and removed. We were then able to dissect underneath the phlegmonous mesoappendix and identify the base. The mesentery was divided and a window was made around the base. A 45 hay load stapler on an
Endo FARHAD was used to divide the appendix at its takeoff from the base of the cecum. We were then able to retract the appendix off of the colon and divided the remaining mesoappendix. There was a large appendicolith that was also identified and
removed from. The abscess cavity in the right lower quadrant was irrigated and suctioned until clear. We also suctioned up some additional stool and pus that was in the right lower quadrant and attempted to drain the pelvis but again visualization
was challenging due to the patient's body habitus. Floseal was applied at the mesoappendix stump, though no active bleeding was noted. A 19 Telugu round Radames drain was introduced through the left lower quadrant port and passed across the pelvis
and up the right colic gutter. This was secured to the skin with a 2-0 nylon suture. The suprapubic 12 mm port was closed with a 0 Maxon using a Roberto Carlos Bhatia device. The ports were then removed under visualization and pneumoperitoneum was
evacuated. The ports were closed with interrupted 4-0 monocryls and covered with dermabond. The patient was initially extubated however had to be quickly reintubated due to respiratory insufficiency. The patient was then transported to the ICU
directly in critical condition.
I was the attending physician and performed the procedure with assistance of the BILLER above. Their assistance was required due to the complexity of the procedure. During the procedure they assisted with port placement, instrument exchanges, holding
camera and closure of the wound. I was present for all portions of the case.
Alexandr Bailey MD
[2025-02-26 10:52] LABS: B.E. 5.0 mmol/L; HCO3 29.1 mmol/L (21-28); O2 Saturation % 99.4 % (94-98); PCO2 40 mmHg (35-48); PO2 107 mmHg (83-108)
--- NOTE | 2025-02-26 12:00 | PTCARENOTE ---
Pt extubated at 1109.O2 2l NC.POX 97%Speech is clear and appropriate.Assisted oob to chair with 1 person minimal assist.Left nares Laporte NGT advanced by to 60 cm as ordered.
--- NOTE | 2025-02-26 13:33 | W.PN.HOSP.TC ---
Today's Communication/Plan
-
Assessment / Plan
Assessment / Plan
General: No Apparent Distress, intubated, off sedation
HEENT: NormoCephalic, ETT and NGT in place
Respiratory: Clear and Non Labored Respirations
Cardiac: S1/S2 and Regular Rhythm; No Rub or Gallop
GI: Soft, Non Tender, surgical port scars CDI, left-sided GRISELDA drain with serosanguineous output
Musculoskeletal: No Edema, no deformity
Skin: Warm and dry
: Saucedo catheter draining clear yellow urine
Neuro: Awake, Alert, following commands
Psych: Calm and cooperative
Mr. Ramirez is a 59-year-old male with no significant medical history who presented following 3 days of abdominal pain. He was found to have acute perforated appendicitis. He was brought emergently to the OR for lap appendectomy and drainage of
intra-abdominal abscess. Prior to surgery he developed episodes of V. tach and was started on IV amiodarone drip. His heart rate is now well-controlled. He remained stable and on antibiotics. He is being treated for sepsis secondary to acute
perforated appendicitis.
Sepsis secondary to acute perforated appendicitis:
- With associated intra-abdominal abscess
- S/p OR 02/25 for lap appendectomy and drainage of intra-abdominal abscess, tolerated procedure well
- GRISELDA drain in place
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
- Hemodynamically stable
- Continue antibiotics with Zosyn, follow-up cultures
- Renal function improving, creatinine 3.4 => 1.6
- Bilirubin improving, 1.9 => 1.4
V. tach:
- Developed runs of SVT and NSVT prior to surgery 02/25, suspect secondary to sepsis
- Started on IV amiodarone drip, heart rate and rhythm now well-controlled
- Cardiology following
- Echocardiogram pending
GUADALUPE:
- Suspect prerenal in the setting of sepsis
- Renal function improving
- Continue IV fluids
- Nephrology following
Hyponatremia:
- Mild
- Nephrology following
- Continuing IV fluids
DVT prophylaxis: Subcu heparin full code
CODE STATUS: Full code
Anticipated Discharge: > 48 hours
Subjective/Interval History
-
Date of Service: February 26, 2025
Patient was seen and examined at bedside this morning. He is postop day 1 lap appendectomy, GRISELDA drain and NG tube in place. Currently on a ventilator weaning trial and tolerating well.
Objective Data
-
Labs:
Laboratory Results
02/26/25 02/26/25 02/26/25
04:14 06:05 10:34
WBC 15.6 H
Hgb 13.4
Hct 37.4 L
Plt Count 179
HCO3 24.2 29.1 H
Sodium 130 L
Potassium 4.4
Chloride 101
Carbon Dioxide 23
BUN 43 H
Creatinine 1.6 H
Glucose 155 H
Calcium 8.2 L
Total Bilirubin 1.4 H
AST 16 L
ALT 20
Alkaline Phosphatase 61
Vital Signs:
Vital Signs
Temp Pulse Resp BP Pulse Ox
98.4 F 79 13 105/72 96
02/26/25 12:00 02/26/25 09:45 02/26/25 09:45 02/25/25 22:13 02/26/25 11:12
I&O
02/25/25 02/26/25 02/27/25
06:59 06:59 06:59
Intake Total 2322.7 / 2464.2 709.5 / 709.5
Output Total 1358 / 1358 250 / 250
Balance 964.7 / 1106.2 459.5 / 459.5
Review of Systems
-
Unable to obtain full review of systems at this time due to: Patient Intubation
History Source: Patient
All other systems: Reviewed and negative
Physical Exam
-
General: No Apparent Distress and Intubated
--- NOTE | 2025-02-26 15:48 | W.PN.ANS.POP ---
Anesthesia Post Operative
- Anesthesia Post Op Note
Vital Signs Stable-See Nursing Note: Yes
Airway Patent: Yes (on 2L NC)
Adequate Pain Control: Yes
Change in Mental Status: No
Current Postoperative Nausea & Vomiting: No
Anesthesia Complications: No
General Anesthetic Recall: No
Unplanned Admission: No
Post Op Hydration Adequate: Yes
--- NOTE | 2025-02-26 16:00 | PTCARENOTE ---
Pt assessed. Tolerated oob to chair.Right A Line discontinued as ordered.
[2025-02-26] MEDS: HEPARIN 5000 UNITS SC (19:38)
--- NOTE | 2025-02-26 20:00 | PTCARENOTE ---
Rec'd pt resting in bed, denies pain, follows commands, SR, bp stable, + pulses, skin warm/dry, o2 2 liters nc, lungs decr in bases, instr on IS- reaches 1500, sat 99, no bowel sounds, no bm,abd dist, firm no n/v, [place] to low inter suctiondraining
brown liquid, irrigated q4hr w/ 30 h20, GRISELDA reconstituted, no drainage, raphael draining yellow urine
--- NOTE | 2025-02-26 22:00 | PTCARENOTE ---
CHG bath done, linens changed
--- NOTE | 2025-02-26 22:00 | PTCARENOTE ---
CHG bath done, linens changed
[2025-02-27] VITALS (17 sets, daily range): BP systolic 108–135; BP diastolic 66–88; BMI 35.0
--- NOTE | 2025-02-27 | PTCARENOTE ---
sys reviewed, pt noted to have sleep apnea-pt desats to 80's, o2 incr to 4liters nc
[2025-02-27] MEDS: ZOSYN 50 IV ×4 (00:08→18:05)
[2025-02-27] MEDS: NSS 1000 IV ×2 (01:56→11:33)
[2025-02-27 03:22] LABS: Venous Blood Gas B.E. 11.4 mmol/L (-4 to +4); Venous Blood Gas O2 Sat % 99.5 %
[2025-02-27 03:23] LABS: Hematocrit 35.4 % (39.0-52.0); Hemoglobin 12.5 g/dL (13.0-18.0); Mean Corp Hgb Conc. 35.3 g/dL (33.0-37.0); Mean Corpuscular Volume 88.1 fL (80.0-94.0); Platelet Count 187 10^3/uL (130-400); Red Cell Dist. Width 12.4 % (11.5-14.5)
[2025-02-27 03:46] LABS: Blood Urea Nitrogen 37 mg/dl (9-20); Calcium 7.8 mg/dl (8.4-10.2); Carbon Dioxide 33 mmol/L (22-30); Chloride 95 mmol/L (98-107); Estimated Creatinine Clearance 89 ml/min; Glucose 113 mg/dl (70-99); Magnesium 2.4 mg/dl (1.6-2.3); Potassium 3.5 mmol/L (3.5-5.1); Sodium 134 mmol/L (135-145); eGFR > 60.00
--- NOTE | 2025-02-27 04:00 | PTCARENOTE ---
sys reviewed, changes noted
[2025-02-27] MEDS: KCL 270 MEQ IV (06:23)
--- NOTE | 2025-02-27 07:30 | PTCARENOTE ---
Patient received lying still in bed with eyes closed, respirations nonlabored. Rouses easily to name called. See assessment coordinator charted on worklist flowsheet. BBS clear but diminished in the bases. Occasional loose productive cough with clear and
white sputum. NGT via right nare taped in place to LIS with large amount of dark green brown drainage. Flushed every 4 hours and prn. Abdomen distended and slightly firm. Hypoactive bowel sounds are audible x 4 quadrants. Laparoscopic sites WNL with
dermabond CDI. GRISELDA drain LLQ with small amount of serous drainage. Positive pulses x 4 extremities with trace generalized edema. IV sites WDL. S1S2 regular, SR on CM. Bed in low and locked position, call dudley within reach.
[2025-02-27] MEDS: HEPARIN 5000 UNITS SC ×2 (07:33→20:04)
--- NOTE | 2025-02-27 08:39 | W.PN.INTV ---
Today's Communication / Plan
Recommendations
- Lower IV fluids to 75 mL/h, follow-up BMP in a.m.
- Outpatient follow-up with sleep clinic for further evaluation of sleep apnea
- Patient can be transferred out of ICU
- Director Federal service will sign off, please call as needed
Assessment
-
Assessment: 59-year-old male non-smoker with a past medical history of hypertension + hyperlipidemia who presents with abdominal pain + bloating. Also having diarrhea since morning prior to arrival and had a temperature of 102 �F one day prior to
arrival. He recently had a business trip to [place] and once he got to the airport he began having mild abdominal pain but went on his trip anyway. He returned home 1 day prior to arrival. He has been having abdominal pain over the last 3 days
with worsening bloating/distention and nausea with poor oral intake. CT abdomen/pelvis showed findings suggestive of severe acute appendicitis. Surgery consulted and plan was to take him to OR. Prior to procedure, he developed SVT/NSVT on
telemetry. He does not have a history of this and remained asymptomatic during these episodes. Cardiology consulted and by the time they evaluate the patient he was back in sinus rhythm. IV amiodarone was started to stabilize the patient for
surgery. Pt brought to OR and underwent laparoscopic appendectomy with drainage of an intra-abdominal abscess. The patient was initially extubated however had to be quickly reintubated due to respiratory insufficiency. The patient was then
transported to the ICU directly in critical condition. Director Federal service consulted for additional recommendations/management.
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
Assessment and plan:
#1. Acute hypoxic respiratory failure requiring reintubation post laparotomy
-Suspect sedation, atelectasis, decreased respiratory drive contributing, with underlying h/o suspected sleep apnea
-S/p reintubation on 02/25, extubated 02/26.
#2. Acute gangrenous perforated appendicitis with intra-abdominal abscess
- s/p laparoscopic appendectomy and drainage of abscess
#3. Sepsis due to above
- Continues to improve, continue antibiotics, currently on Zosyn
- Lower IV fluids to 75 mL/h
#4. GUADALUPE
- Improved, lower IV fluids to 75 mL/h.
#5. Hyponatremia due to reduced oral intake
- Improving with normal saline infusion
#6. Hyperbilirubinemia
- Improving
#7. Paroxysmal SVT vs NSVT with new onset A-fib
- Off amiodarone infusion now, cardiology service on case.
#8. Suspect sleep disordered breathing
- Reported history of snoring, witnessed apnea by spouse at night. High BMI, high likelihood of underlying sleep disordered breathing.
- Outpatient follow-up with sleep clinic for further evaluation, information added to discharge section
Critical care statement: A total of 37 minutes of critical care time was provided for this patient today. This includes management of unstable vital signs, evaluation of the patient at bedside, reviewing the patient's pertinent medical records
including radiographs, microbiology, laboratory evaluations, and discussion with primary team, consultants, pharmacy, nutrition, physical therapy, case management, charge nurse, critical care nursing, and respiratory therapy.
Data:
CT abdomen/pelvis with IV contrast 02/25/2025:
Findings suggesting severe acute appendicitis. No evidence of perforation or abscess formation. Probable appendicolith.
Associated reactive change of small bowel in the right abdomen and probable small bowel ileus. Evaluation for bowel obstruction is limited without oral contrast.
Hepatic fatty infiltration.
Mild diffuse bladder wall thickening. This can be seen with cystitis and bladder outlet obstruction.
Mild prostate hypertrophy
Delayed excretion of both kidneys
Subjective Dataa
Subjective Data
Date of Service:
Date of Service: February 27, 2025
Subjective:
Patient comfortable lying in bed in no acute distress.
Review of Systems
Genitourinary: Other (All 14 systems reviewed and negative except as stated above in the history of present illness.)
Objective Data
Data Reviewed
Vital Signs / I&O / Oxygen:
Vital Signs
Temp Pulse Resp BP Pulse Ox
98.1 F 79 20 118/83 96
02/27/25 07:22 02/27/25 07:00 02/27/25 07:00 02/27/25 07:00 02/27/25 07:00
Intake and Output
02/26/25 02/27/25 02/28/25
06:59 06:59 06:59
Intake Total 2322.7 / 2464.2 3632.9 / 4002.9 470 / 470
Output Total 1358 / 1358 3025 / 3025
Balance 964.7 / 1106.2 607.9 / 977.9 470 / 470
SaO2 [A/C] 98
SaO2 96
Nasal Cannula flow liters per 4
minute
Physical Exam
General: Comfortable
HEENT: Normocephalic
Cardiovascular: S1-S2
Respiratory: Clear
GI: Distended (Hypoactive bowel sounds)
Neurology: Awake and Alert
Skin: Warm
Labs/Micro/Reports
Lab Data
02/27/25 03:14
02/27/25 03:14
Laboratory Results
02/26/25
10:34
pH 7.47 H
pCO2 40
pO2 107
HCO3 29.1 H
O2 Delivery Level 5/5 40%
Microbiology
02/25/25 16:01 Appendix Gram Stain - Preliminary
02/25/25 11:25 Blood/Venous Blood Culture - Preliminary
No Growth in 24 hours- Final report to follow
02/25/25 11:26 Blood/Venous Blood Culture - Preliminary
No Growth in 24 hours- Final report to follow
[2025-02-27 09:29] LABS: Glycohemoglobin (HgbA1c) 5.3 % (4.0-5.9)
--- NOTE | 2025-02-27 10:08 | W.PN.GS2 ---
Today's Communication / Plan
-
NPO/NGT
c/w drain and antibiotics
OOB as able
Assessment / Plan
-
This is a 59-year-old male who presented with 3 days of right lower quadrant pain, septic shock and arrhythmia found to have acute appendicitis on CT
POD#2 from a laparoscopic appendectomy and drainage of an intra-abdominal abscess for a gangrenous perforated appendicitis with pus and fecaliths in the right lower quadrant.
AFVSS, no further NSVT. Off Amiodarone. Off Pressors
Extubated POD #1
Expect prolonged Ileus
High risk for intrabdominal abscess
Blood cx with NGTD
Intraop cx pending
ARF present on admission, Cr now normalized
Leukocytosis improved
Acute anemia secondary to hemodilution
Plan:
NPO with NGT to LIWS
IVF while NPO
Continue Zosyn day 2/7
Zofran, PPI
D/C raphael for voiding trial
Trend BMP, CBC
Continue with GRISELDA drain
Scheduled Ofirmev with prn dilaudid
Okay for chemical DVT prophylaxis, SCDs.
Incentive spirometry
Appreciate cardiac/nephrology recs. Medical management as per primary team
Ok for transfer out of ICU from surgical standpoint
Subjective Data
-
Date of Service: February 27, 2025
Pt seen and examined at bedside with Dr. Bailey. Denies n/v. Minimal pain. Not yet passing flatus.
Objective Data
-
Intake and Output
02/26/25 02/27/25 02/28/25
06:59 06:59 06:59
Intake Total 2322.7 / 2464.2 3632.9 / 4002.9 470 / 470
Output Total 1358 / 1358 3025 / 3025
Balance 964.7 / 1106.2 607.9 / 977.9 470 / 470
Intake:
IV fluids (Total) 2122.7 / 2264.2 3342.9 / 3712.9 470 / 470
Amiodarone 250.1 / 266.8 83.5 / 83.5
Fentanyl 90.0 / 97.5 22.5 / 22.5
Levophed 127.5 / 135.0 7.5 / 7.5
Nss 1,000 ml @ 100 mls/hr IV . 400 / 500 200 / 200
Q10H GERSON Rx#:[id number]
Potassium chloride 337.5 / 337.5 0 / 270 270 / 270
Propofol 117.6 / 127.4 29.4 / 29.4
Sterile Water For Injection 1200 / 1300 2800 / 2800
1000 ml 1,000 ml @ 100 mls/hr
IV .[id number] GERSON with Sodium
Bicarbonate 150 Meq Rx#:
[id number]
IV piggybacks 200 / 200 200 / 200
Amount instilled into GI Tube ( 90 /
Total)
[place] Sump 90 / 90
Output:
Drain Output (Total)
Left Lower Abdomen Bryan-
Garza
Gastrointestinal tube output ( 1400 / 1400
Total)
[place] Sump 1400 / 1400
Urine, Raphael 1171 / 1171 1595 / 1595
Vital Signs
Temp Pulse Resp BP Pulse Ox
98.1 F 79 20 118/83 97
02/27/25 07:22 02/27/25 07:00 02/27/25 07:00 02/27/25 07:00 02/27/25 07:30
Lab Results
02/27/25 03:14
02/27/25 03:14
Calcium 7.8 mg/dl (8.4-10.2) L 02/27/25 03:14
Phosphorus 2.8 mg/dl (2.5-4.5) 02/27/25 03:14
Magnesium 2.4 mg/dl (1.6-2.3) H 02/27/25 03:14
Total Bilirubin 1.4 mg/dl (0.2-1.3) H 02/26/25 04:14
Direct Bilirubin 0.5 mg/dl (0.0-0.4) H 02/25/25 11:25
AST 16 U/L (17-59) L 02/26/25 04:14
ALT 20 U/L (0-50) 02/26/25 04:14
Alkaline Phosphatase 61 U/L (38-126) 02/26/25 04:14
Total Protein 5.4 g/dl (6.3-8.2) L D 02/26/25 04:14
Albumin 2.8 g/dl (3.5-5.0) L 02/26/25 04:14
Physical Exam
-
NAD
ABD soft, expected ttp, mod distended, NGT with bilious outputs
Incisions well approximated with intact glue. GRISELDA with SSF
Patient has a raphael catheter: Yes
Patient has a central line: No
--- NOTE | 2025-02-27 11:35 | PTCARENOTE ---
ECHO done at bedside.
--- NOTE | 2025-02-27 12:20 | PTCARENOTE ---
Addendum entered by Coty Perera RN 02/27/25 14:14:
Placed on RA. Encourage DB &C with splinting.
Original Note:
Saucedo catheter discontinued. Assisted OOB to chair. SCDs off. NGT pinned to gown. GRISELDA drain emptied and placed in lap. at the bedside. Patient taking sips of clear liquids without N/V, NGT to LIS.
--- NOTE | 2025-02-27 15:36 | W.PN.HOSP.TC ---
Today's Communication/Plan
-
Assessment / Plan
Assessment / Plan
General: No Apparent Distress, comfortable
HEENT: NormoCephalic, NGT in place
Respiratory: Clear and Non Labored Respirations
Cardiac: S1/S2 and Regular Rhythm; No Rub or Gallop
GI: Soft, Non Tender, surgical port scars CDI, left-sided GRISELDA drain with serosanguineous output
Musculoskeletal: No Edema, no deformity
Skin: Warm and dry
: No Saucedo
Neuro: Awake, Alert, since
Psych: Calm and cooperative
Mr. Ramirez is a 59-year-old male with no significant medical history who presented following 3 days of abdominal pain. He was found to have acute perforated appendicitis. He was brought emergently to the OR for lap appendectomy and drainage of
intra-abdominal abscess. Prior to surgery he developed episodes of V. tach and was started on IV amiodarone drip. His heart rate is now well-controlled. He remained stable and on antibiotics. He is being treated for sepsis secondary to acute
perforated appendicitis.
Sepsis secondary to acute perforated appendicitis:
- With associated intra-abdominal abscess
- S/p OR 02/25 for lap appendectomy and drainage of intra-abdominal abscess, tolerated procedure well
- GRISELDA drain in place, NG tube in place to LIWS
- Remained intubated following surgery, now extubated
- Saucedo catheter removed, awaiting spontaneous void
- Hemodynamically stable, heart rate controlled, amiodarone drip discontinued
- Continue antibiotics with Zosyn day 2/7, surgical cultures growing gram-negative rods and strep, leukocytosis improving
- Awaiting return of bowel function, out of bed as able
- Renal function improving, creatinine 3.4 => 1.6 => 1.1
- Bilirubin improving, 1.9 => 1.4
V. tach:
- Developed runs of SVT and NSVT prior to surgery 02/25, suspect secondary to sepsis
- Started on IV amiodarone drip, heart rate and rhythm now well-controlled, amiodarone discontinued
- Cardiology following
- Echocardiogram unremarkable
GUADALUPE:
- Suspect prerenal in the setting of sepsis
- Now resolved
- Continue IV fluids while n.p.o.
Hyponatremia:
- Mild, improving serum sodium 134 today
- Nephrology following
- Continuing IV fluids
DVT prophylaxis: Subcu heparin
CODE STATUS: Full code
Anticipated Discharge: > 48 hours
Subjective/Interval History
-
Date of Service: February 27, 2025
Patient was seen and examined at bedside this morning. Extubated and Saucedo catheter removed. Feeling much better.
Objective Data
-
Labs:
Laboratory Results
02/27/25
03:14
Sodium 134 L
Potassium 3.5
Chloride 95 L
Carbon Dioxide 33 H
BUN 37 H
Creatinine 1.1
Glucose 113 H
Calcium 7.8 L
Vital Signs:
Vital Signs
Temp Pulse Resp BP Pulse Ox
97.7 F 86 20 125/85 96
02/27/25 15:25 02/27/25 14:00 02/27/25 14:00 02/27/25 12:00 02/27/25 14:00
I&O
02/26/25 02/27/25 02/28/25
06:59 06:59 06:59
Intake Total 2322.7 / 2464.2 3632.9 / 4002.9 1167.5 / 1167.5
Output Total 1358 / 1358 3025 / 3025 1415 / 1415
Balance 964.7 / 1106.2 607.9 / 977.9 -247.5 / -247.5
Review of Systems
-
History Source: Patient
All other systems: Reviewed and negative
Physical Exam
-
General: No Apparent Distress
--- NOTE | 2025-02-27 16:00 | PTCARENOTE ---
Assisted to bathroom, passing flatus, voiding. No BM. Assisted back to chair. Gait steady. Tolerating po intake--Total output from NGT 1700-780cc oral fluids = 920cc total output from NGT thus far.
--- NOTE | 2025-02-27 16:57 | W.PN.CD ---
Today's Communication / Plan
-
Watch on tele
55 min spent caring for patient with review of all records from this admit and careful EKG/tele review
Impression / Plan
-
59 yo male with obesity is admitted with severe sepsis with acute renal failure in setting of acute appendicitis. We are consulted for arrhythmia.
SVT
- Arrhythmias in ER on 02/25/2025
- 1. 12 lead ekg: SVT at 215 bpm with a bit rightward axis, perhaps AVNRT, would need EPS
- 2. Tele strip of just under 6 sec my review => brief irregular AT => WCT irregular, single lead only => Likely aberration of SVT and less likely VT.
- No hx palps/syncope
- Echo normal
- Sinus EKG w/o WPW
Acute appendicitis with abscess and sepsis => improving
Obesity, BMI 35
GUADALUPE, resolved
Subjective: feels much beter
Physical Exam
Vital Signs/Labs
Vital Signs
Temp Pulse Resp BP Pulse Ox
97.7 F 87 20 126/77 92
02/27/25 15:25 02/27/25 16:24 02/27/25 16:24 02/27/25 16:24 02/27/25 15:00
02/26/25 02/27/25 02/28/25
06:59 06:59 06:59
Actual Weight 108.5 kg 107.5 kg
02/27/25 03:14
02/27/25 03:14
Magnesium 2.4 mg/dl (1.6-2.3) H 02/27/25 03:14
Triglycerides Cancelled 02/26/25 00:38
Physical Exam
Constitutional: No acute distress
EENT: Anicteric
Cardiovascular: Rhythm & rate is regular and Pedal edema is absent
Respiratory: Respiratory effort normal and Lungs clear to auscul.
GI: Soft and Distention absent
Neuro/Psych: AO x 3
Data Reviewed
-
Date of Service: February 27, 2025
--- NOTE | 2025-02-27 16:59 | CM ---
Met with patient at bedside
CM Consult completed; Advance Directive information packet provided
Family Physician: Dorina Jenkins MD; [facility]; [address], [place], [address]; phone: [phone]
Pharmacy verified: [email or web address] [email or web address] [place] [address]
Lives w/ ; multilevel home; half bath 1st floor; 1 step to enter; 15 steps between floors; railings present
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
NO SNF or Home Health utilization history
will transport home
Plan: Discharge to home when medically stable; Case Management will monitor for needs
--- NOTE | 2025-02-27 17:46 | PTCARENOTE ---
Addendum entered by Coty Perera RN 02/27/25 18:28:
Cell phone chief yeoman also with patient. NGT clamped for transport.
Original Note:
Report called verbally to Becki JORDAN on . Questions answered. Patient belongings gathered including cell phone and ear bud speakers, wearing eyeglasses. Patient transported via wheelchair accompanied by RN and PCT, belongings sent.
[2025-02-28] VITALS (7 sets, daily range): BP systolic 132–151; BP diastolic 78–89; PULSE 82; BMI 34.7
[2025-02-28] MEDS: ZOSYN 50 IV ×4 (00:02→17:05)
[2025-02-28] MEDS: NSS 1000 IV (02:38)
[2025-02-28 07:45] LABS: Blood Urea Nitrogen 30 mg/dl (9-20); Calcium 8.2 mg/dl (8.4-10.2); Carbon Dioxide 29 mmol/L (22-30); Chloride 102 mmol/L (98-107); Estimated Creatinine Clearance 97 ml/min; Glucose 92 mg/dl (70-99); Potassium 3.5 mmol/L (3.5-5.1); Sodium 135 mmol/L (135-145); eGFR > 60.00
[2025-02-28 08:05] LABS: Hematocrit 37.4 % (39.0-52.0); Hemoglobin 13.0 g/dL (13.0-18.0); Mean Corp Hgb Conc. 34.8 g/dL (33.0-37.0); Mean Corpuscular Volume 89.9 fL (80.0-94.0); Platelet Count 227 10^3/uL (130-400); Red Cell Dist. Width 12.7 % (11.5-14.5)
[2025-02-28] MEDS: HEPARIN 5000 UNITS SC ×2 (08:32→20:12)
--- NOTE | 2025-02-28 08:48 | W.PN.CD ---
Today's Communication / Plan
-
Cardiology will sign off
He will contact cardiology if cardiac symptoms develop
Impression / Plan
-
59 yo male with obesity is admitted with severe sepsis with acute renal failure in setting of acute appendicitis. We are consulted for arrhythmia.
SVT
- Arrhythmias in ER on 02/25/2025
- 1. 12 lead ekg: SVT at 215 bpm with a bit rightward axis, perhaps AVNRT, would need EPS
- 2. Tele strip of just under 6 sec my review => brief irregular AT => WCT irregular, single lead only => Likely aberration of SVT and less likely VT.
- Tele review last 48 hrs negative
- No hx palps/syncope
- Echo normal
- Sinus EKG w/o WPW
- I provided education about SVT and alerted him that he may have SVT in the future
Acute appendicitis with abscess and sepsis => improving
Obesity, BMI 35
GUADALUPE, resolved
Subjective: feels much beter
Physical Exam
Vital Signs/Labs
Vital Signs
Temp Pulse Resp BP Pulse Ox
99.0 F 83 18 133/89 97
02/28/25 03:00 02/28/25 03:00 02/28/25 03:00 02/28/25 03:00 02/28/25 03:00
02/27/25 02/28/25 03/01/25
06:59 06:59 06:59
Actual Weight 107.5 kg 106.413 kg
02/28/25 06:49
02/28/25 06:49
Magnesium 2.4 mg/dl (1.6-2.3) H 02/27/25 03:14
Triglycerides Cancelled 02/26/25 00:38
Physical Exam
Constitutional: No acute distress
EENT: Anicteric
Cardiovascular: Rhythm & rate is regular and Pedal edema is absent
Respiratory: Respiratory effort normal and Lungs clear to auscul.
GI: Soft and Distention absent
Neuro/Psych: AO x 3
Data Reviewed
-
Date of Service: February 28, 2025
--- NOTE | 2025-02-28 10:16 | W.PN.GS2 ---
Today's Communication / Plan
-
NG tube removed
Out of bed and ambulate as able.
Continue antibiotics.
Assessment / Plan
-
This is a 59-year-old male who presented with 3 days of right lower quadrant pain, septic shock and arrhythmia found to have acute appendicitis on CT
POD#3 from a laparoscopic appendectomy and drainage of an intra-abdominal abscess for a gangrenous perforated appendicitis with pus and fecaliths in the right lower quadrant.
Cardiac status improved, no arrhythmias
GUADALUPE also improved, serum creatinine has normalized.
Ileus improving, starting to have return of bowel function
Plan:
NG tube removed, okay for sips and chips
Continue IVFs
Continue Zosyn day 3/
Zofran, PPI
Trend BMP, CBC
Continue with GRISELDA drain to bulb suction
Okay for chemical DVT prophylaxis, SCDs.
Incentive spirometry
Appreciate cardiac/nephrology recs. Medical management as per primary team
General Surgery will continue to follow. Anticipate discharge as early as
Time Spent
Total Time Spent with Patient (in minutes): 20
Subjective Data
-
Date of Service: February 28, 2025
Interval Events:
No acute events overnight. Slept well. Pain Controlled. Denies Nausea/Vomiting, +bowel function.
Objective Data
-
Intake and Output
02/27/25 02/28/25 03/01/25
06:59 06:59 06:59
Intake Total 3632.9 / 4002.9 2132.5 / 2132.5
Output Total 3025 / 3025 3150 / 3150
Balance 607.9 / 977.9 -1017.5 / -1017.5
Intake:
Oral fluids 900 / 900
IV fluids (Total) 3342.9 / 3712.9 982.5 / 982.5
Amiodarone 83.5 / 83.5
Fentanyl 22.5 / 22.5
Levophed 7.5 / 7.5
Nss 1,000 ml @ 75 mls/hr IV . 400 / 500 712.5 / 712.5
[id number] GERSON Rx#:[id number]
Potassium chloride 0 / 270 270 / 270
Propofol 29.4 / 29.4
Sterile Water For Injection 2800 / 2800
1000 ml 1,000 ml @ 100 mls/hr
IV .[id number] GERSON with Sodium
Bicarbonate 150 Meq Rx#:
[id number]
IV piggybacks 200 / 200 50 / 50
Amount instilled into GI Tube ( 90 / 90 200 / 200
Total)
[place] Sump 90 / 90 200 / 200
Output:
Drain Output (Total) 55 / 55
Left Lower Abdomen Bryan- 55 / 55
Garza
Gastrointestinal tube output ( 1400 / 1400 1790 / 1790
Total)
[place] Sump 1400 / 1400 1790 / 1790
Urine, Raphael 1595 / 1595 530 / 530
Urine, Voided 775 / 775
Other:
Number of unmeasured liquid
stools
Rectum 1
Vital Signs
Temp Pulse Resp BP Pulse Ox
98.2 F 83 16 133/85 94
02/28/25 07:00 02/28/25 07:00 02/28/25 07:00 02/28/25 07:00 02/28/25 07:00
Lab Results
02/28/25 06:49
02/28/25 06:49
Calcium 8.2 mg/dl (8.4-10.2) L 02/28/25 06:49
Phosphorus 2.8 mg/dl (2.5-4.5) 02/27/25 03:14
Magnesium 2.4 mg/dl (1.6-2.3) H 02/27/25 03:14
Total Bilirubin 1.4 mg/dl (0.2-1.3) H 02/26/25 04:14
Direct Bilirubin 0.5 mg/dl (0.0-0.4) H 02/25/25 11:25
AST 16 U/L (17-59) L 02/26/25 04:14
ALT 20 U/L (0-50) 02/26/25 04:14
Alkaline Phosphatase 61 U/L (38-126) 02/26/25 04:14
Total Protein 5.4 g/dl (6.3-8.2) L D 02/26/25 04:14
Albumin 2.8 g/dl (3.5-5.0) L 02/26/25 04:14
Physical Exam
-
GENERAL/NEURO: Awake, Alert, no distress
CHEST: Unlabored breathing on RA
ABDOMEN: Soft, obese, appropriately tender, Distended, NG tube a little bloody removed at bedside. Incisions clean dry and intact. JPs serosanguineous
Patient has a raphael catheter: No
Patient has a central line: No
--- NOTE | 2025-02-28 13:16 | W.PN.HOSP.TC ---
Today's Communication/Plan
-
Assessment / Plan
Assessment / Plan
General: No Apparent Distress, comfortable
HEENT: NormoCephalic, atraumatic
Respiratory: Clear and Non Labored Respirations
Cardiac: Regular rhythm, heart rate 85
GI: Soft, Non Tender, surgical port scars CDI, left-sided GRISELDA drain with serosanguineous output
Musculoskeletal: No Edema, no deformity
Skin: Warm and dry
: No Saucedo
Neuro: Awake, Alert
Psych: Calm and cooperative
Mr. Ramirez is a 59-year-old male with no significant medical history who presented following 3 days of abdominal pain. He was found to have acute perforated appendicitis. He was brought emergently to the OR for lap appendectomy and drainage of
intra-abdominal abscess. Prior to surgery he developed episodes of V. tach and was started on IV amiodarone drip. His heart rate is now well-controlled. He remained stable and on antibiotics. He is being treated for sepsis secondary to acute
perforated appendicitis.
Sepsis secondary to acute perforated appendicitis:
- With associated intra-abdominal abscess
- S/p OR 02/25 for lap appendectomy and drainage of intra-abdominal abscess, tolerated procedure well
- GRISELDA drain in place, NG tube removed this morning 02/28, with sips and chips only for now, multiple bowel movements
- Remained intubated following surgery, now extubated
- Saucedo catheter removed, voiding spontaneously
- Hemodynamically stable, heart rate controlled, amiodarone drip discontinued
- Continue antibiotics with Zosyn day 3, surgical cultures growing gram-negative rods and strep, leukocytosis resolved
- Renal function improving, creatinine 3.4 => 1.6 => 1.1 => 1.0
- Bilirubin improving, 1.9 => 1.4
V. tach:
- Developed runs of SVT and NSVT prior to surgery 02/25, suspect secondary to sepsis
- Started on IV amiodarone drip, heart rate and rhythm now well-controlled, amiodarone discontinued
- Echocardiogram unremarkable
- Cardiology signed off
GUADALUPE:
- Suspect prerenal in the setting of sepsis
- Now resolved
Hyponatremia:
- Mild, improving serum sodium 135 today
- Nephrology following
DVT prophylaxis: Subcu heparin
CODE STATUS: Full code
Anticipated Discharge: > 48 hours
Subjective/Interval History
-
Date of Service: February 28, 2025
Patient was seen and examined at bedside this morning. NG tube removed. Moving his bowels. Not advancing diet yet, staying with sips and chips.
Objective Data
-
Labs:
Laboratory Results
02/28/25
06:49
WBC 9.1
Hgb 13.0
Hct 37.4 L
Plt Count 227 D
Sodium 135
Potassium 3.5
Chloride 102
Carbon Dioxide 29
BUN 30 H
Creatinine 1.0
Glucose 92
Calcium 8.2 L
Vital Signs:
Vital Signs
Temp Pulse Resp BP Pulse Ox
99.5 F 84 16 132/86 97
02/28/25 11:00 02/28/25 11:00 02/28/25 11:00 02/28/25 11:00 02/28/25 11:00
I&O
02/27/25 02/28/25 03/01/25
06:59 06:59 06:59
Intake Total 3632.9 / 4002.9 2132.5 / 2132.5
Output Total 3025 / 3025 3150 / 3150
Balance 607.9 / 977.9 -1017.5 / -1017.5
Review of Systems
-
History Source: Patient
All other systems: Reviewed and negative
Physical Exam
-
General: No Apparent Distress
--- NOTE | 2025-02-28 14:58 | CM ---
POD # 3, perforated appendix, Lap appendectomy/ drain intra-abdominal abscess. IV/Zosyn. Discharge POC: Anticipate home with no needs. Observe for home IV/AB.
--- NOTE | 2025-02-28 17:23 | RESPNOTE ---
spoke with patient regarding cpap. per patient- has not had a formal study done but has been told there is a concern for JOSEPHINE and he should get referral from PCP for sleep study. patient agreeable to try cpap tonight.
[2025-03-01] VITALS (7 sets, daily range): BP systolic 129–149; BP diastolic 77–90; BMI 34.2
[2025-03-01] MEDS: ZOSYN 50 IV ×5 (00:16→23:31)
[2025-03-01] MEDS: HEPARIN 5000 UNITS SC ×2 (08:18→20:45)
[2025-03-01 09:17] LABS: Hematocrit 37.7 % (39.0-52.0); Hemoglobin 12.9 g/dL (13.0-18.0); Mean Corp Hgb Conc. 34.2 g/dL (33.0-37.0); Mean Corpuscular Volume 90.4 fL (80.0-94.0); Platelet Count 283 10^3/uL (130-400); Red Cell Dist. Width 12.6 % (11.5-14.5)
--- NOTE | 2025-03-01 09:59 | W.PN.GS2 ---
Today's Communication / Plan
-
Adv to fld
Assessment / Plan
-
This is a 59-year-old male who presented with 3 days of right lower quadrant pain, septic shock and arrhythmia found to have acute appendicitis on CT
POD#4 from a laparoscopic appendectomy and drainage of an intra-abdominal abscess for a gangrenous perforated appendicitis with pus and fecaliths in the right lower quadrant.
Cardiac status improved, no arrhythmias
GUADALUPE also improved, serum creatinine has normalized.
Ileus improving, starting to have return of bowel function, passing flatus
Plan:
Adv to fulls
Reduce IVFs
Continue Zosyn day /
Zofran, PPI
Trend BMP, CBC
Continue with GRISELDA drain to bulb suction
Okay for chemical DVT prophylaxis, SCDs.
Incentive spirometry
Appreciate cardiac/nephrology recs. Medical management as per primary team
General Surgery will continue to follow. Anticipate discharge as early as
Subjective Data
-
Date of Service: March 01, 2025
AFVSS, jarrod cld, passing flatus, denies n/v, chavira controlled
Objective Data
-
Intake and Output
02/28/25 03/01/25 03/02/25
06:59 06:59 06:59
Intake Total 2132.5 / 2132.5 480 / 480
Output Total 3150 / 3150 260 / 260
Balance -1017.5 / -1017.5 220 / 220
Intake:
Oral fluids 900 / 900 480 / 480
IV fluids (Total) 982.5 / 982.5
Nss 1,000 ml @ 75 mls/hr IV . 712.5 / 712.5
[id number] GERSON Rx#:[id number]
Potassium chloride 270 / 270
IV piggybacks 50 / 50
Amount instilled into GI Tube ( 200 / 200
Total)
[place]ns[place] Sump 200 / 200
Output:
Drain Output (Total)
Left Lower Abdomen Bryan-
Garza
Gastrointestinal tube output ( 1789
Total)
Onslow Sump 1789
Urine, Raphael 530 / 530
Urine, Voided 775 / 775 225 / 225
Other:
Number of approximated MODERATE 3
amounts of urine
Number of unmeasured liquid
stools
Rectum 1 1
Vital Signs
Temp Pulse Resp BP Pulse Ox
98.5 F 81 20 146/85 96
03/01/25 07:00 03/01/25 07:00 03/01/25 07:00 03/01/25 07:00 03/01/25 07:00
Lab Results
03/01/25 07:32
Calcium 8.2 mg/dl (8.4-10.2) L 02/28/25 06:49
Phosphorus 2.8 mg/dl (2.5-4.5) 02/27/25 03:14
Magnesium 2.4 mg/dl (1.6-2.3) H 02/27/25 03:14
Total Bilirubin 1.4 mg/dl (0.2-1.3) H 02/26/25 04:14
Direct Bilirubin 0.5 mg/dl (0.0-0.4) H 02/25/25 11:25
AST 16 U/L (17-59) L 02/26/25 04:14
ALT 20 U/L (0-50) 02/26/25 04:14
Alkaline Phosphatase 61 U/L (38-126) 02/26/25 04:14
Total Protein 5.4 g/dl (6.3-8.2) L D 02/26/25 04:14
Albumin 2.8 g/dl (3.5-5.0) L 02/26/25 04:14
Physical Exam
-
Gen: softly distended and protuberant, incisions cdi, drain ss
Patient has a raphale catheter: No
Patient has a central line: No
[2025-03-01 10:00] LABS: Nucleated Red Blood Cells % 0 % (-)
[2025-03-01 10:05] LABS: ALT (SGPT) 35 U/L (0-50); AST (SGOT) 33 U/L (17-59); Albumin 2.9 g/dl (3.5-5.0); Alkaline Phosphatase 88 U/L (38-126); Blood Urea Nitrogen 23 mg/dl (9-20); Calcium 8.1 mg/dl (8.4-10.2); Carbon Dioxide 26 mmol/L (22-30); Chloride 104 mmol/L (98-107); Estimated Creatinine Clearance 107 ml/min; Glucose 86 mg/dl (70-99); Magnesium 2.2 mg/dl (1.6-2.3); Potassium 3.7 mmol/L (3.5-5.1); Sodium 135 mmol/L (135-145); Total Protein 5.8 g/dl (6.3-8.2); eGFR > 60.00
--- NOTE | 2025-03-01 13:23 | W.PN.HOSP.TC ---
Today's Communication/Plan
-
Assessment / Plan
Assessment / Plan
General: No Apparent Distress, comfortable
HEENT: NormoCephalic, atraumatic
Respiratory: Clear and Non Labored Respirations
Cardiac: Regular rhythm, heart rate 85
GI: Soft, Non Tender, surgical port scars CDI, left-sided GRISELDA drain with serosanguineous output
Musculoskeletal: No Edema, no deformity
Skin: Warm and dry
: No Saucedo
Neuro: Awake, Alert
Psych: Calm and cooperative
Mr. Ramirez is a 59-year-old male with no significant medical history who presented following 3 days of abdominal pain. He was found to have acute perforated appendicitis. He was brought emergently to the OR for lap appendectomy and drainage of
intra-abdominal abscess. Prior to surgery he developed episodes of V. tach and was started on IV amiodarone drip. His heart rate is now well-controlled. He remained stable and on antibiotics. He is being treated for sepsis secondary to acute
perforated appendicitis.
Sepsis secondary to acute perforated appendicitis:
- With associated intra-abdominal abscess
- S/p OR 02/25 for lap appendectomy and drainage of intra-abdominal abscess, tolerated procedure well
- GRISELDA drain in place, NG tube removed 02/28, diet advanced to full liquids today
- Continue antibiotics with Zosyn day 06/20, surgical cultures growing Pseudomonas, E. coli, and strep, leukocytosis resolved
- GUADALUPE resolved, creatinine 3.4 => 1.6 => 1.1 => 1.0 => 0.9
- Bilirubin results within normal limits, 1.9 => 1.4 => 1.1
V. tach:
- Developed runs of SVT and NSVT prior to surgery 02/25, suspect secondary to sepsis
- Started on IV amiodarone drip, heart rate and rhythm now well-controlled, amiodarone discontinued
- Echocardiogram unremarkable
- Cardiology signed off
GUADALUPE:
- Suspect prerenal in the setting of sepsis
- Now resolved
Hyponatremia:
- Mild, stable serum sodium 135 today
- Nephrology following
DVT prophylaxis: Subcu heparin
CODE STATUS: Full code
Anticipated Discharge: > 48 hours
Subjective/Interval History
-
Date of Service: March 01, 2025
Patient was seen and examined at bedside. His diet has been advanced to full liquids. He is moving his bowels and overall clinically improving.
Objective Data
-
Labs:
Laboratory Results
03/01/25
07:32
WBC 7.8
Hgb 12.9 L
Hct 37.7 L
Plt Count 283 D
Sodium 135
Potassium 3.7
Chloride 104
Carbon Dioxide 26
BUN 23 H
Creatinine 0.9
Glucose 86
Calcium 8.1 L
Total Bilirubin 1.1
AST 33
ALT 35
Alkaline Phosphatase 88
Vital Signs:
Vital Signs
Temp Pulse Resp BP Pulse Ox
97.8 F 88 20 149/90 97
03/01/25 11:01 03/01/25 11:01 03/01/25 11:01 03/01/25 11:01 03/01/25 11:01
I&O
02/28/25 03/01/25 03/02/25
06:59 06:59 06:59
Intake Total 2132.5 / 2132.5 480 / 480
Output Total 3150 / 3150 260 / 260
Balance -1017.5 / -1017.5 220 / 220
Review of Systems
-
History Source: Patient
All other systems: Reviewed and negative
Abdomen/GI: Reports Abdominal Pain and Diarrhea
Physical Exam
-
General: No Apparent Distress
--- NOTE | 2025-03-01 17:06 | CM ---
POD # 4, perforated appendix, Lap appendectomy/ drain intra-abdominal abscess. IV/Zosyn. L GRISELDA drain. Discharge POC: Anticipate home with no needs. Observe for home IV/AB and/or drain care.
[2025-03-02 03:39] VITALS: BP 142/86
[2025-03-02] MEDS: ZOSYN 50 IV ×2 (05:39→11:49)
[2025-03-02 05:54] VITALS: BMI 34.3
[2025-03-02] MEDS: HEPARIN 5000 UNITS SC (08:16)
[2025-03-02 08:51] VITALS: BP 145/92
--- NOTE | 2025-03-02 09:25 | W.PN.GS2 ---
Addendum entered and electronically signed by Alexandr Bailey MD 03/02/25 13:37:
Will need to tailor antibiotics to abscess is growing strep, Pseudomonas and E. coli.
Original Note:
Today's Communication / Plan
-
Regular diet.
Dispo planning
Assessment / Plan
-
This is a 59-year-old male who presented with 3 days of right lower quadrant pain, septic shock and arrhythmia found to have acute appendicitis on CT
POD#5 from a laparoscopic appendectomy and drainage of an intra-abdominal abscess for a gangrenous perforated appendicitis with pus and fecaliths in the right lower quadrant.
Cardiac status improved, no arrhythmias
GUADALUPE also improved, serum creatinine has normalized.
Ileus improving, starting to have return of bowel function, passing flatus
Plan:
Adv to regular diet
Stop IVFs
Continue Zosyn day /
Zofran, PPI
Trend BMP, CBC
Okay for chemical DVT prophylaxis, SCDs.
Incentive spirometry
Appreciate cardiac/nephrology recs. Medical management as per primary team
General Surgery will continue to follow. cleared for discharge today from a surgery perspective as long as he is able to tolerate p.o. intake. His pain appears already controlled on oral pain medication.
I explained to him that he is still at very high risk for developing a postoperative abscess given the severity of his disease on presentation and reviewed signs and symptoms to look out for namely worsening right lower quadrant pain, fever chills.
Time Spent
Total Time Spent with Patient (in minutes): 10
Subjective Data
-
Date of Service: March 02, 2025
Interval Events:
No acute events overnight. Slept well. Pain Controlled. Denies Nausea/Vomiting, +bowel function. Tolerating diet.
Objective Data
-
Intake and Output
03/01/25 03/02/25 03/03/25
06:59 06:59 06:59
Intake Total 480 / 480 2910 / 2910
Output Total 260 / 260
Balance 220 / 220 2895 / 2895
Intake:
Oral fluids 480 / 480 2910 / 2910
Output:
Drain Output (Total)
Left Lower Abdomen Bryan-
Garza
Urine, Voided 225 / 225
Other:
Number of approximated MODERATE 3 3
amounts of urine
Number of unmeasured liquid
stools
Rectum 1 3
Vital Signs
Temp Pulse Resp BP Pulse Ox
98.0 F 86 20 145/92 96
03/02/25 08:51 03/02/25 08:51 03/02/25 08:51 03/02/25 08:51 03/02/25 08:51
Calcium 8.1 mg/dl (8.4-10.2) L 03/01/25 07:32
Phosphorus 2.8 mg/dl (2.5-4.5) 02/27/25 03:14
Magnesium 2.2 mg/dl (1.6-2.3) 03/01/25 07:32
Total Bilirubin 1.1 mg/dl (0.2-1.3) 03/01/25 07:32
Direct Bilirubin 0.5 mg/dl (0.0-0.4) H 03/01/25 07:32
AST 33 U/L (17-59) 03/01/25 07:32
ALT 35 U/L (0-50) 03/01/25 07:32
Alkaline Phosphatase 88 U/L (38-126) 03/01/25 07:32
Total Protein 5.8 g/dl (6.3-8.2) L 03/01/25 07:32
Albumin 2.9 g/dl (3.5-5.0) L 03/01/25 07:32
Physical Exam
-
GENERAL/NEURO: Awake, Alert, no distress
CHEST: Unlabored breathing on RA
ABDOMEN: Soft, Non-Tender, Distended, incisions clean dry and intact. GRISELDA serosanguineous, minimal output, removed at bedside without issue.
Patient has a raphael catheter: No
Patient has a central line: No
[2025-03-02 09:34] LABS: Blood Urea Nitrogen 16 mg/dl (9-20); Calcium 8.1 mg/dl (8.4-10.2); Carbon Dioxide 22 mmol/L (22-30); Chloride 104 mmol/L (98-107); Estimated Creatinine Clearance 120 ml/min; Glucose 115 mg/dl (70-99); Potassium 3.8 mmol/L (3.5-5.1); Sodium 133 mmol/L (135-145); eGFR > 60.00
[2025-03-02 09:36] LABS: Hematocrit 37.0 % (39.0-52.0); Hemoglobin 12.9 g/dL (13.0-18.0); Mean Corp Hgb Conc. 34.9 g/dL (33.0-37.0); Mean Corpuscular Volume 88.5 fL (80.0-94.0); Nucleated Red Blood Cells % 0 % (-); Platelet Count 361 10^3/uL (130-400); Red Cell Dist. Width 12.6 % (11.5-14.5)
--- NOTE | 2025-03-02 11:03 | W.DCSUMMARY ---
Discharge Summary
Discharge Data
Date of Admission: 02/25/25
Date of Discharge: 03/02/25
Total time spent discharging patient (in min): 44
-
Pending Results: No
Hospital Course
Mr. Ramirez is a 59-year-old male with no significant medical history who presented following 3 days of abdominal pain. He was found to have acute perforated appendicitis. He was admitted for treatment of sepsis secondary to acute perforated
appendicitis. He was brought emergently to the OR for lap appendectomy and drainage of intra-abdominal abscess. He tolerated the procedure well, however he required reintubation immediately postoperatively for acute hypoxic respiratory failure.
He was able to be extubated 24 hours later on 02/26/2025. Prior to surgery he developed episodes of V. tach and was started on IV amiodarone drip. His heart rate and rhythm quickly recovered and amiodarone was discontinued.
Initially had an GUADALUPE which resolved quickly with treatment of his acute infection and with IV fluids. He also had a mild bilirubinemia which also resolved with the above-mentioned treatment. He was able to tolerate an advancing diet. He remained
on antibiotic treatment with Zosyn for 5 days postprocedure. His surgical cultures grew Pseudomonas, E. coli, and strep. His leukocytosis resolved. His GRISELDA drain was removed on postop day 5 (03/02/2025). He is being discharged to home with a
prescription for Augmentin to continue antibiotics for a total course of 7 days. He will need to follow-up with general surgery in the outpatient office.
General: No Apparent Distress, comfortable
HEENT: NormoCephalic, atraumatic
Respiratory: Clear and Non Labored Respirations
Cardiac: Regular rhythm, heart rate 85
GI: Soft, Non Tender, surgical port scars CDI, left-sided GRISELDA drain removed
Musculoskeletal: No Edema, no deformity
Skin: Warm and dry
: No Saucedo
Neuro: Awake, Alert
Psych: Calm and cooperative
Discharge Plan
-
Patient Disposition: Home (Routine Discharge)
Discharge Diagnosis/Procedures: Perforated appendicitis with intra-abdominal abscess. Laparoscopic appendectomy and drainage of an intra-abdominal abscess.
Condition: Good
Diet: As tolerated
Activity: No strenuous activity
Bathing Restrictions: OK to Shower
Activity Restrictions/Additional Instructions:
Instructions following Laparoscopic appendectomy
Please call [phone] if you have any questions or concerns after your surgery.
Wound Care:
Your incisions are covered with skin glue which will come off on it�s own in 5-10 days.
It is ok to shower the day after your surgery. Do not scrub the incisions, let soap and water wash over them and pat dry.
� Bruising around your incisions is normal.
� Using ice packs will help minimize this swelling.
� No swimming or soaking incisions for 1 week.
� Your stitches will dissolve and do not need to be removed.
Urinary retention:
If you are unable to urinate 6-8 hours after your surgery, please call [phone] to discuss further management.
Activity:
No heavy lifting more than 15 pounds for the next 3 weeks, then you may gradually lift heavier objects as tolerated by discomfort. Otherwise activity as tolerated by your comfort level.
Pain Management:
Use Tylenol, ibuprofen and ice packs to treat your pain.
� You may take 650 milligrams of Tylenol (Max 3 grams per day) every 6 hours, and 600 mg of ibuprofen also every 6 hours. (you can alternate them every 3 hours)
� You may use an ice pack to your incision as needed.
� If you still have pain not controlled by these measures, take your prescription pain medication as prescribed.
Medications:
You may resume your home medications.
Bowel Medications:
Prescription pain medication can make you constipated. If you take this medication, also take colace 100 mg twice daily (this is over the counter). If this is not sufficient, you may take Miralax (polyethylene glycol) to help move your bowels.
Diet:
After your procedure, there are no dietary restrictions.
Driving restrictions:
No driving if you are taking prescription pain medication or if you think your normal reaction time and attentiveness has been slowed by your surgery.
Things to Look out for:
Worsening Abdominal pain, redness or drainage from incision
Call Doctor for:
Please call if you notice worsening redness or drainage from incision(s) lasting longer than 5 days after your surgery, any foul-smelling drainage from the incision, pain not controlled by pain medications, persistent nausea and vomiting, or for any
fevers greater than 101.3 F. The number for questions/concerns is [phone]
Follow-up:
Follow-up appointment will be scheduled with your surgeon in 3-4 weeks. Please call prior to your appointment if you have any questions or concerns. [phone]
Referrals:
Alon Rivera MD [Active, Pulmonary Medicine] - in four to six weeks
Alexandr Bailey MD [Active, Surgical]
Ángel Young MD [Family Provider, Family Practice]
Prescriptions:
New
acetaminophen 325 mg tablet
650 mg PO Q6HPRN PRN (Reason: mild pain) Qty: 14 0RF
tramadol 50 mg tablet
25 mg PO Q6HPRN PRN (Reason: severe pain/breakthrough pain) Qty: 8 0RF
ibuprofen 600 mg tablet
600 mg PO Q6H PRN (Reason: pain) Qty: 14 0RF
amoxicillin-pot clavulanate 875-125 mg tablet
1 tab PO Q12 Qty: 6 0RF
Discharge Orders:
Discharge Patient (As Directed); Ordered 03/02/25
Ordered By: Brady Cates
Discharge Date and Time
Print Language: ZIMBABWEAN
[2025-03-02 11:46] VITALS: BP 134/83
[2025-03-02 15:25] VITALS: BP 147/81
--- NOTE | 2025-03-02 16:46 | CM ---
Discharge to home today; no needs; will provide transport home
== END 2025-03-02 18:13 | disposition home or self-care (01) | DRG 853 ==
LOC: 2 NORTH 14:45
PROVIDERS: Nurse Practitioner Family; Physician Assistant; Registered Nurse; Student in an Organized Health Care Education/Training Program; ADMITTING PHYSICIAN Surgery; ATTENDING PHYSICIAN Internal Medicine; CONSULT PHYSICIAN Internal Medicine Critical Care Medicine; EMERGENCY PHYSICIAN Student in an Organized Health Care Education/Training Program; FAMILY PHYSICIAN Family Medicine; OTHER PHYSICIAN Internal Medicine; OTHER PHYSICIAN Specialist
PROC: 0DTJ4ZZ Resection of Appendix, Percutaneous Endoscopic Approach (ICD-10-PCS; 2025-02-25)
PROC: 0W9G40Z Drainage of Peritoneal Cavity with Drainage Device, Percutaneous Endoscopic Approach (ICD-10-PCS; 2025-02-25)
PROC: 5A09357 Assistance with Respiratory Ventilation, Less than 24 Consecutive Hours, Continuous Positive Airway Pressure (ICD-10-PCS; 2025-02-28)
DX: A41.9 Sepsis, unspecified organism (principal); J96.01 Acute respiratory failure with hypoxia; K35.33 Acute appendicitis with perforation, localized peritonitis, and gangrene, with abscess; N17.9 Acute kidney failure, unspecified; R17 Unspecified jaundice; E87.1 Hypo-osmolality and hyponatremia; I47.10 Supraventricular tachycardia, unspecified; I47.20 Ventricular tachycardia, unspecified; K56.7 Ileus, unspecified; R65.20 Severe sepsis without septic shock; E66.9 Obesity, unspecified; Z68.35 Body mass index [BMI] 35.0-35.9, adult; I10 Essential (primary) hypertension; E78.5 Hyperlipidemia, unspecified; I48.91 Unspecified atrial fibrillation; K38.1 Appendicular concretions; B96.20 Unspecified Escherichia coli [E. coli] as the cause of diseases classified elsewhere; B96.5 Pseudomonas (aeruginosa) (mallei) (pseudomallei) as the cause of diseases classified elsewhere; B95.5 Unspecified streptococcus as the cause of diseases classified elsewhere; Z79.899 Other long term (current) drug therapy
CPT/HCPCS: 71045; 74018; 74177; 80048; 80053; 81003; 81015; 82248; 82570; 82805; 83036; 83605; 83690; 83735; 83935; 84100; 84300; 84478; 85025; 85027; 87040; 87070; 87075; 87077; 87086; 87186; 87205; 88304; 93005; 93306; 94002; 94003; 94660; 96361; 96374; 96375; 99291; J0282; Q9950; Q9967